=== PATIENT | male | born 1945 | race Caucasian/White ===

== ENCOUNTER 2020-12-12 13:11 | Outpatient (CLI) | payer OTHER, SELFPAY ==
--- NOTE | ~2020-12-12 | XR_ITS ---
EXAMINATION: XR abdomen/kub 1V INDICATION: Gross scalp and hematuria TECHNIQUE: Supine views of the abdomen were obtained on 2 radiographs. COMPARISON: CT from today FINDINGS: There is a 13 mm stone in the left mid kidney. Stones measuring 11 mm, 7 mm, and 6 mm are s een in the right kidney. No stones are identified along the expected courses of the ureter. There are multiple phleboliths of the pelvis. An 18 mm ill-defined calcification of the right pelvis is demons trated to be stones within a diverticulum of the bladder on the comparison CT. The bowel gas pattern is normal. There is mild osteoarthritis of the hips. Moderate lumbar spondylosis is noted. IMPRESSION: 1. Bilateral nephrolithiasis. 2. Stones seen within a bladder diverticulum, better appreciated on the comparison CT. Reviewed, dictated and finalized at location A. C D REACTOR OPERATOR IMPRESSION: 1. Bilateral nephrolithiasis. 2. Stones seen within a bladder diverticulum, better appreciated on the compari son CT.
--- NOTE | ~2020-12-12 | CT_ITS ---
EXAMINATION: CT abdomen pelvis wo/w con DATE: 12/12/2020 14:11 INDICATION: Microscopic hematuria. TECHNIQUE: Computed tomography (CT) of the abdomen and pelvis was performed without and with intraven ous contrast using a total of 130 mL Omnipaque-350 intravenous contrast with a double-bolus technique for simultaneous opacification of the renal parenchyma and renal collecting system. Automated exposu re control and iterative reconstruction technique were employed. The dose-length product was 3084.28 mGy-cm. COMPARISON: None FINDINGS: The visualized portions of the lung bases demonstrate mild atelectasis. There is mild elevation of le ft hemidiaphragm. No pleural effusion. The heart size is normal. No pericardial effusion. There are c oronary artery calcifications. Calcified left hilar lymph nodes are consistent with old granulomatous disease. There is a small sliding hiatal hernia. There is diffuse hepatic steatosis. The gallbladder is normal. Calcifications in the spleen are consistent with old granulomatous disease. The pancreas, and adrenal glands are normal. There is cortical thinning of the kidneys. There are 4 stones in righ t kidney measuring up to 7 mm. There is a 2.3 cm peripelvic cyst in right kidney. There is an 8 mm s tone in left kidney. The ureters are well opacified and are normal. There are diverticula of the gustavo dder. There are stones in the bladder measuring up to 15 mm with the largest stone in a diverticulum. There is diffuse bladder wall thickening, likely secondary to chronic outlet obstruction from the mo derately enlarged prostate. There is a left inguinal hernia containing fat. There is diverticulosis o f the colon without evidence of diverticulitis. There are no dilated loops of bowel. The appendix is normal. There are multiple ventral hernias containing fat. There is a ventral hernia containing a wal l of obstructive small bowel. There is a large distribution of fat stranding in the small bowel mesen marcy, likely edema or inflammation/scarring (mesenteric panniculitis). There are no pathologically en larged lymph nodes. There is no free intraperitoneal fluid. There is moderate thoracolumbar spondylos is. There is mild chronic anterior wedging of multiple thoracic vertebral bodies. IMPRESSION: 1. Bilateral nonobstructing kidney stones. 2. Bladder stones. 3. Diffuse bladder wall thickening and bladder diverticula, likely secondary to chronic outlet obstru ction from the moderately enlarged prostate. 4. Multiple ventral hernias. One contains a wall of nonobstructed small bowel. 5. Left inguinal hernia containing fat. Reviewed, dictated and finalized at location B. NING MACHINE OPERATOR IMPRESSION: 1. Bilateral nonobstructing kidney stones. 2. Bladder stones. 3. Diffuse bladder wall thickening and bladder diverticula, likely secondary to chronic outlet obstruction from the moderately enlarged prostate. 4. Multiple ventral hernias. One contains a wall of nonobstructed small bowel. 5. Left inguinal hernia containing fat.
[2020-12-12 13:50] LABS: Estimated Glomerular Filt Rate > 60
== END 2020-12-12 13:12 | disposition home or self-care (01) ==
LOC: ANHIMG 13:12
PROVIDERS: PCP Emergency Medicine; Visit Provider Urology
DX: R31.29 Other microscopic hematuria (principal); N20.0 Calculus of kidney; N21.0 Calculus in bladder; K43.9 Ventral hernia without obstruction or gangrene; K40.90 Unilateral inguinal hernia, without obstruction or gangrene, not specified as recurrent
CPT/HCPCS: 74018; 74178; Q9967

== ENCOUNTER 2021-06-14 20:27 | Observation (INO) | payer OTHER, SELFPAY ==
--- NOTE | ~2021-06-14 | XR_ITS ---
EXAMINATION: XR abdomen/kub 1V EXAM DATE: 06/14/2021 21:39 INDICATION: Kidney stone . TECHNIQUE: Frontal projection(s) of the abdomen for interpretation. Comparison is made to prior exami nation from 12/12/2020. FINDINGS: Left UPJ 1 m stone identified, indicated. Smaller right nephrolithiasis. Bladder jet stone . Calcifications in the pelvis are believed to be phleboliths. Expected amount of colonic stool and g as. No small bowel obstruction. There are bony degenerative changes. IMPRESSION: 1. Left UPJ stone. 2. Right nephrolithiasis. 3. Bladder stone. Reviewed, dictated and finalized at location A.
--- NOTE | ~2021-06-14 | CT_ITS ---
EXAMINATION: CT abdomen pelvis wo con EXAM DATE: 06/14/2021 21:29 INDICATION: Bilateral flank pain, penis and testicle pain. TECHNIQUE: Spiral CT of the abdomen and pelvis was performed without contrast. Axial, coronal and sag ittal images were reviewed. The dose-length product (DLP) for this examination was 966.55 mGy-cm. T he exposure was tailored according to patient size (auto mA exposure control), and iterative reconstr uction (ASIR) was used as additional dose reduction technique. Comparison is made to prior examinatio n from 12/12/2020. FINDINGS: There is a 1 cm left renal pelvic stone with mild left hydronephrosis. There are several ri ght kidney stones up to 6 mm in size. No right hydronephrosis. There is moderate prostatomegaly, the prostate is bulging into the bladder base. There is a right posterolateral bladder diverticulum cont aining bladder annette stone. Another smaller left lateral bladder diverticulum. Moderate-sized left, small to moderate right inguinal fat-containing hernias. Multiple fat-containing periumbilical ventral hernias. There is aster mesentery appearance, a nonspecific finding but most c ommonly caused by infiltration with inflammatory cells, chronic mesenteric panniculitis. No pathologi nichole enlarged lymph nodes to suggest lymphoma/malignancy, or thrombosed vessels to suggest edema. The liver, spleen, adrenal glands and pancreas are unremarkable. Gallbladder is unremarkable. No bi liary obstruction. There is no retroperitoneal or pelvic lymphadenopathy. The appendix is normal. There is mild to moderate sigmoid colonic diverticulosis. There is no adjace nt inflammatory change to suggest diverticulitis. The stomach and small bowel are unremarkable. Ther e is expected amount of colonic stool. No free intraperitoneal gas. The heart is normal in size. There are no pericardial or pleural effusions. The lung bases are unremarkable. There are no osteo blastic or osteolytic lesions identified. Compared to previous exam, the left UPJ stone was in a calyx on prior study and has moved to the UPJ. The aster mesentery and other findings unchanged. IMPRESSION: 1. Left UPJ 1 cm stone, mild hydronephrosis. 2. Right nephrolithiasis. 3. Bladder diverticula and stone. 4. Moderate prostatomegaly. 5. Moderate left, small to moderate right inguinal fat-containing hernias. 6. Mild to moderate sigmoid diverticulosis. 7. Chronic aster mesentery. Reviewed, dictated and finalized at location A.
--- NOTE | ~2021-06-14 | XR_ITS ---
EXAMINATION: XR retrograde pyelo w/stent LT EXAM DATE: 06/15/2021 13:50 INDICATION: Left UPJ stone, obstructive nephropathy. TECHNIQUE: Fluoroscopy used during XR retrograde pyelo w/stent LT performed by Dr. Suresh bazan MD, urologist. The radiologist Stefano Song M.D. dictating this report of the image(s) availabl e was not present for the procedure. Total fluoroscopic time of 27 seconds. The DAP for this proced ure was 616 radcm2. A total of 9 images sent to PACS from the exam. FINDINGS: Approximately 1 cm stone identified left UPJ. Left ureter was cannulated, injected. There i s mild left hydronephrosis. A double-J ureteral stent was placed. Correlate with procedure note. IMPRESSION: Left UPJ stone. Stent in position. Reviewed, dictated and finalized at location A.
[2021-06-14 20:42] VITALS: BP 158/78; PULSE 79; RESP 16; TEMP 36.9; O2SAT 98
[2021-06-14 21:05] LABS: Basophils Percent Auto 0.1 % (0.2-1.2); Eosinophils Percent Auto 0.4 % (0-4.4); Hematocrit 40.5 % (42.0-52.0); Hemoglobin 13.8 g/dL (14.0-18.0); Immature Granulocyte Absolute 0.02 K/mm3 (0.00-0.031); Immature Granulocyte Percent A 0.2 % (0-0.5); Lymphocytes Absolute Auto 1.62 K/mm3 (0.9-3.2); Lymphocytes Percent Auto 17.9 % (18.3-44.2); Mean Corpuscular HGB Conc 34.1 g/dl (32-36); Mean Corpuscular Hemoglobin 28.6 pg (26-34); Mean Corpuscular Volume 83.9 fl (80-100); Mean Platelet Volume 10.3 fl (7.4-10.4); Monocytes Absolute Auto 0.7 K/mm3 (0.1-0.6); Monocytes Percent Auto 7.6 % (2.6-8.5); Neutrophils Absolute Auto 6.7 K/mm3 (1.3-6.7); Neutrophils Percent Auto 73.8 % (45.5-73.1); Platelet Count Result 194 k/mm3 (150-375); Red Blood Count 4.83 M/mm3 (4.6-6.20); Red Cell Distribution Width 13.1 % (11.5-14.5); White Blood Count 9.1 K/mm3 (4.5-10.0)
[2021-06-14 21:11] LABS: Add Urine Microscopic? YES; Appearance Urine Clear (Clear); Bacteria Urine Trace /hpf; Bilirubin Urine Negative (Negative); Blood Urine 2+ (Negative); Color Urine Yellow (Yellow); Glucose Urine UA Negative (Negative); Ketones Urine Negative (Negative); Leukocyte Esterase Ur 2+ LEU/UL (Negative); Mucus Urine Rare /lpf; Nitrate Urine Positive (Negative); Protein Urine Negative (Negative); Specific Grav Ur 1.012 (1.001-1.035); Urobilinogen Urine Negative mg/dL (<2.0); WBC Urine 31-50 /hpf
[2021-06-14 21:17] LABS: Anion Gap 13 mmol/L (8-16); Blood Urea Nitrogen 15 mg/dL (9-20); Calcium 9.5 mg/dL (8.4-10.2); Carbon Dioxide 22 mmol/L (22-30); Chloride 103 mmol/L (98-107); Estimated Glomerular Filt Rate 46; Glucose 119 mg/dL (65-110); Potassium 3.6 mmol/L (3.4-5.0); Sodium 138 mmol/L (137-145)
--- NOTE | 2021-06-14 22:18 | ED.GENADULT ---
HPI - General Adult General Chief complaint: Urogenital-Male Stated complaint: flank, groin, and testicular pain Time Seen by Provider: 06/14/21 20:49 Source: RN notes reviewed History of Present Illness HPI narrative: Patient presents to emergency department from home for several complaints. Patient notes that he has had pain in his left flank for the past 2 days radiates around his left abdomen and down into his left testicle states the pain is described as aching in nature. Patient states he does have a history of kidney stones as well as bladder stones and is followed by Dr. Diggs. Patient also notes some pain with urination. Patient also is concerned as 2 days ago he placed a rubber band around his penis and had forgotten was there and fell asleep and was on for approximately 7 2 8 hours. He is concerned as he feels that he has some mild swelling of his penis. Related Data Allergies Allergy/AdvReac Type Severity Reaction Status Date / Time Penicillins Allergy Unknown Unknown Verified 06/14/21 21:05 Review of Systems Review of Systems: Narrative: Gen.: Denies fevers or chills ENT: Denies congestion Respiratory: Denies shortness of breath or cough CV: Denies chest pain or palpitations GI: Denies abdominal pain nausea, emesis or diarrhea see HPI Musculoskeletal: Denies back pain or muscle pain Neuro: Denies numbness, tingling, weakness or focal weakness Skin: Denies rash Except as documented, all other systems reviewed and negative [facility] Past Medical History Medical History (Updated 06/14/21 @ 22:21 by David Quevedo DO) Screening for abdominal aortic aneurysm Screening PSA (prostate specific antigen) Skin lesions Vitamin D deficiency disease Social History Social History Smoking status: Never smoker Alcohol intake: never Exam Narrative: Exam Narrative: APPEARANCE: No acute distress, nontoxic, resting in bed EYES: EOMI HEENT: Normocephalic, atraumatic, OMM RESPIRATORY: No respiratory distress Clear to auscultation bilaterally with no rhonchi wheezing or rales. CARDIOVASCULAR: Regular rate and rhythm without murmurs rubs or gallops. ABDOMINAL: Soft, nontender, nondistended, no rebound or guarding left flank tenderness : Circumcised male, no phimosis or paraphimosis, normal coloration of the meatus with capillary refill less than 3 seconds no scrotal swelling or erythema no testicular tenderness MUSCULOSKELETAl: Moves all extremities. No clubbing, cyanosis or edema. NEURO: Awake and alert. Following commands, speech normal, no focal deficits SKIN:: Warm, dry. No rashes lesions or abrasions PSYCHIATRIC: Normal affect/mood, Course Course Emergency Course: Discussed with Dr. Alaniz presentation work-up agrees with plan for patient go to the OR for stent placement in a.m. Request patient started Levaquin Discussed with Dr. Colby presentation work-up agrees with admission at this time Discussed with patient and family results of workup and diagnosis. Discussed need for admission. Patient and family understand and agree to current treatment plan Vital Signs Vital signs: Vital Signs Temperature 98.5 F 06/14/21 20:42 Pulse Rate 79 06/14/21 20:42 Respiratory Rate 16 06/14/21 20:42 Blood Pressure 158/78 H 06/14/21 20:42 Pulse Oximetry 98 06/14/21 20:42 Temperature 98.5 F 06/14/21 20:42 Pulse Rate 79 06/14/21 20:42 Respiratory Rate 16 06/14/21 20:42 Blood Pressure 158/78 H 06/14/21 20:42 Pulse Oximetry 98 06/14/21 20:42 Medical Decision Making Vital Signs Vital Signs: Vital Signs Temperature 98.5 F 06/14/21 20:42 Pulse Rate 79 06/14/21 20:42 Respiratory Rate 16 06/14/21 20:42 Blood Pressure 158/78 H 06/14/21 20:42 Pulse Oximetry 98 06/14/21 20:42 Temperature 98.5 F 06/14/21 20:42 Pulse Rate 79 06/14/21 20:42 Respiratory Rate 16 06/14/21 20:42 Blood Pressure 158/78 H
[2021-06-14 22:28] VITALS: BP 154/79; PULSE 78; RESP 18; O2SAT 99
--- NOTE | 2021-06-14 22:41 | PC.NURSE ---
Patient's daughter,Kelsy Ingram: Cell phone number: [phone] The number listed as her cellphone in the chart is actually her work phone number.
[2021-06-14 23:37] VITALS: BP 152/89; PULSE 63; RESP 18; O2SAT 98
[2021-06-15] VITALS (9 sets, daily range): BP systolic 124–155; BP diastolic 64–83; PULSE 54–64; RESP 14–20; TEMP 35.8–36.8; O2SAT 95–99; BMI 34.2
--- NOTE | 2021-06-15 00:46 | ADMGEN ---
This patient, Sea Godinez, was admitted to [facility] Surg Room 317-02. Patient/family oriented to hospital policies and general routines including ID bracelet, bed and alarms, visiting hours, pain management, procedures, bathroom and other care routines, personal items, smoking policy, room service/diet, and visiting hours. Information on how to activate the Rapid Response Team has been discussed. Patient/Family are encouraged to report perceived risks to care and to ask questions if they do not understand what they are told or what they should do.
[2021-06-15] MEDS: SODIUM CHLORIDE 0.9% IV 1,000 ML 125 ML IV CONT (02:33)
--- NOTE | 2021-06-15 06:21 | WPDURCON ---
Assessment and Plan Assessment and plan (1) Acute UTI: Code(s): N39.0 - Urinary tract infection, site not specified Status: Acute Assessment and Plan: - continue empiric treatment With Levaquin. - await final urine culture (2) Kidney stone on left side: Code(s): N20.0 - Calculus of kidney Status: Acute Assessment and Plan: Obstructing 1cm left UPJ stone. Given the presence of urinary tract infection and obstructing stone I discussed plan for cystoscopy and left ureteral stent insertion today. Patient understands the risks benefits and alternatives. They understand that he will need deferred definitive stone management. Agrees to proceed with cystoscopy, possible bladder stone evacuation, left retrograde pyelogram, left ureteral stent insertion (3) Acute renal insufficiency: Code(s): N28.9 - Disorder of kidney and ureter, unspecified Status: Acute (4) Bladder stone: Code(s): N21.0 - Calculus in bladder Status: Acute Assessment and Plan: patient with multiple stones present in a bladder diverticulum. Small stones may be evacuated at the time of cystoscopy, or may require additional intervention at a later date. Urology Consult Note HPI Date Seen: 06/15/21 Requesting Physician: Corie Colby DO Primary Care Provider: Nakul Barrera, DO Consult Narrative Narrative: Sea Godinez is a 75 year old male who presented to the emergency department last night for 2 issues. The patient notes that he has had pain in his left flank for the past 2 days radiates around his left abdomen. Patient states he does have a history of kidney stones as well as bladder stones. Patient also notes some pain with urination. he denies fevers or chills. He denies nausea or vomiting. Patient states his pain is improved this morning Patient also is concerned as 2 days ago he placed a rubber band around his penis and had forgotten was there and fell asleep and was on for approximately 7 - 8 hours. the patient subsequently the band. He is now voiding well. He has no significant pain. Review of Systems Review of Systems: All systems reviewed & are unremarkable except as noted in HPI and below PMFSH Past Medical History Medical History (Updated 06/15/21 @ 06:25 by Imani Montes MD) Bladder stone Screening for abdominal aortic aneurysm Screening PSA (prostate specific antigen) Skin lesions Vitamin D deficiency disease Social History Social History Smoking status: Never smoker Second hand tobacco smoke exposure: No Alcohol intake: never Substance use: never Spiritual care concerns: No Meds Home Medications and Allergies Home Medications Medication Instructions Recorded Confirmed Type tamsulosin See Rx Instructions .ROUTE .COMPLEX 06/15/21 06/15/21 History Allergies Allergy/AdvReac Type Severity Reaction Status Date / Time Penicillins Allergy Unknown Unknown Verified 06/14/21 21:05 Vital Signs Vital Signs - 24 hr 06/14/21 20:42 06/14/21 22:28 06/14/21 23:37 Temperature 36.9 C Pulse Rate 79 78 63 Respiratory Rate 16 18 18 Blood Pressure 158/78 H 154/79 H 152/89 H Pulse Oximetry 98 99 98 06/15/21 00:58 Temperature 36.6 C Pulse Rate 61 Respiratory Rate 20 Blood Pressure 147/64 H Pulse Oximetry 99 Exam Narrative: Exam Narrative: The patient is awake alert in no acute distress. His breathing is unlabored. His abdomen soft nontender nondistended. Patient has a normal phallus and bilateral descended testicles. There is no significant erythema, ecchymosis, or injury to the phallus. Results Labs CBC & Chem 7: 06/14/21 20:53 06/14/21 20:53 Labs: Short CBC 06/14/21 Range/Units 20:53 WBC 9.1 (4.5-10.0) K/mm3 Hgb 13.8 L (14.0-18.0) g/dL Hct 40.5 L (42.0-52.0) % Plt Count 194 (150-375) k/mm3 B
[2021-06-15 06:51] LABS: Basophils Percent Auto 0.3 % (0.2-1.2); Eosinophils Absolute Auto 0.1 K/mm3 (0-0.3); Eosinophils Percent Auto 1.4 % (0-4.4); Hematocrit 41.9 % (42.0-52.0); Hemoglobin 13.7 g/dL (14.0-18.0); Immature Granulocyte Absolute 0.03 K/mm3 (0.00-0.031); Immature Granulocyte Percent A 0.4 % (0-0.5); Lymphocytes Absolute Auto 1.37 K/mm3 (0.9-3.2); Lymphocytes Percent Auto 19.7 % (18.3-44.2); Mean Corpuscular HGB Conc 32.7 g/dl (32-36); Mean Corpuscular Hemoglobin 28.3 pg (26-34); Mean Corpuscular Volume 86.6 fl (80-100); Mean Platelet Volume 10.6 fl (7.4-10.4); Monocytes Absolute Auto 0.6 K/mm3 (0.1-0.6); Monocytes Percent Auto 8.5 % (2.6-8.5); Neutrophils Absolute Auto 4.9 K/mm3 (1.3-6.7); Neutrophils Percent Auto 69.7 % (45.5-73.1); Platelet Count Result 181 k/mm3 (150-375); Red Blood Count 4.84 M/mm3 (4.6-6.20); Red Cell Distribution Width 13.2 % (11.5-14.5)
[2021-06-15 07:02] LABS: Anion Gap 11 mmol/L (8-16); Blood Urea Nitrogen 16 mg/dL (9-20); Calcium 8.7 mg/dL (8.4-10.2); Carbon Dioxide 21 mmol/L (22-30); Chloride 107 mmol/L (98-107); Estimated CRCL calculation 47 ml/min; Estimated Glomerular Filt Rate 42; Glucose 106 mg/dL (65-110); Sodium 139 mmol/L (137-145)
--- NOTE | 2021-06-15 08:19 | PM.SD2 ---
Same Day Admit/Disch: HPI History of Present Illness Chief complaint: Left kidney stone, UTI, renal insufficiency Narrative: Sea Godinez is a 75 year old male With a past medical history of BPH, hernia, GERD who presented to the ED for left-sided flank pain that radiated to the abdomen down into the groin. Patient said it all started about 2 days ago on Friday. Patient stated that he has been little nauseated however it does not have any vomiting. He does admit to a little abnormal swelling in his testes in his penis. However patient also placed around around his penis and scrotum and for got that was there when he fell asleep for approximately 1 hour. However that has resolved and the patient does not have any pain in that area. Patient also stated that he has a little bit of swelling in his legs in the right leg greater than left however he said that is pretty normal for him. He also stated that he has had kidney stones in the past and they put him on antibiotics for UTI then as well. Patient has been seen by urology Dr. Montes who is taking him down for stent today at 1:00 p.m. according to the patient. Currently patient has no chest pain, shortness of breath, nausea, vomiting, diarrhea, constipation, numbness and tingling, sweats, fevers, chills, lightheadedness, dizziness, syncope, falls, urinary dysfunction, weakness or fatigue. Patient also denies hematuria, cloudy urine, or any type of odor. [facility] Past Medical History Medical History Bladder stone Screening for abdominal aortic aneurysm Screening PSA (prostate specific antigen) Skin lesions Vitamin D deficiency disease Social History Social History Social History: Patient lives at home with his Malena that he has been to for 56 years with no pets. 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 Gender identity (if verbalized by the patient): Male Sexual Orientation (if Verbalized by the Patient): Straight or Heterosexual Spiritual care concerns: No Agree to blood products: Yes Same Day Admit/Disch: Med Pre-admit Medications Home Medications Medication Instructions Recorded Confirmed Type finasteride 5 mg PO DAILY 06/15/21 06/15/21 History levofloxacin 750 mg PO DAILY #7 tablet 06/15/21 Rx tamsulosin See Rx Instructions .ROUTE .COMPLEX 06/15/21 06/15/21 History Exam Const: General: cooperative, healthy appearing, comfortable, no acute distress, well developed, alert, awake, Physically active and well groomed Nutritional Appearance: average body habitus, well nourished, obese and overweight Orientation/consciousness: oriented to person, oriented to place, oriented to time and patient oriented x3 Limitations: no limitations HENMT: Head: normal to inspection Ears: external ears normal and other (Hard of hearing) General nose exam: Normal external nose present, Normal nares present and Normal nasal mucous membranes and turbinates present Face and sinus: normal facial exam Mouth: Yes Normal oral and palatal mucosa present, Yes lip normal, Yes tongue normal and Yes moist mucous membranes Teeth and gingiva: abnormal tooth and associated gingiva and poor dentition Eyes: General: appearance normal, both eyes and all related structures Neck: Neck: normal visual inspection, full ROM, trachea midline and supple Chest: Chest palpation & inspection: normal inspection of the chest Resp: Effort & Inspection: normal respiratory effort and able to speak in complete sentences Auscul
--- NOTE | 2021-06-15 11:24 | WPDHPUPDATE1 ---
History and Physical Update Update Date/Time: 06/15/21 11:24 History and Physical has been reviewed, including an updated exam of the patient. There are NO changes in the patient's condition. Risks, benefits, and alternatives have been discussed and questions answered. Patient agrees to proceed with procedure. Proceed with cystoscopy, left retrograde pyelogram, left ureteral stent placement
--- NOTE | 2021-06-15 11:39 | WPDANESEPPF ---
Anes - Initial Pre Proc Eval Procedure: Operation Date: 06/15/21 13:00 Proposed Procedures p Cystoscopy, Left Stent Placement(Left) - Suresh Diggs MD Date/Time: 06/15/21 11:39 Surgeon: Corie Colby DO Pre Op Diagnosis: Left kidney stone, UTI, renal insufficiency Patient Data Age: 75 Gender: M Height: 1.83 m Weight: 114.5 kg Last Vital Signs Temp 36.8 C 06/15/21 06:00 Pulse 64 06/15/21 06:00 Resp 20 06/15/21 06:00 BP 148/73 H 06/15/21 06:00 Pulse Ox 97 06/15/21 06:00 Allergies Allergy/AdvReac Type Severity Reaction Status Date / Time Penicillins Allergy Unknown Unknown Verified 06/14/21 21:05 Home Medications Medication Instructions Recorded Confirmed Type finasteride 5 mg PO DAILY 06/15/21 06/15/21 History tamsulosin See Rx Instructions .ROUTE .COMPLEX 06/15/21 06/15/21 History Laboratory Tests 06/14/21 06/14/21 06/14/21 20:53 20:53 20:53 WBC 9.1 K/mm3 K/mm3 (4.5-10.0) RBC 4.83 M/mm3 M/mm3 (4.6-6.20) Hgb 13.8 g/dL L g/dL (14.0-18.0) Hct 40.5 % L % (42.0-52.0) MCV 83.9 fl fl (80-100) MCH 28.6 pg pg (26-34) MCHC 34.1 g/dl g/dl (32-36) RDW 13.1 % % (11.5-14.5) Plt Count 194 k/mm3 k/mm3 (150-375) MPV 10.3 fl fl (7.4-10.4) Immature Gran % (Auto) 0.2 % % (0-0.5) Neut % (Auto) 73.8 % H % (45.5-73.1) Lymph % (Auto) 17.9 % L % (18.3-44.2) Douglas % (Auto) 7.6 % % (2.6-8.5) Eos % (Auto) 0.4 % % (0-4.4) Baso % (Auto) 0.1 % L % (0.2-1.2) Lymph # (Auto) 1.62 K/mm3 K/mm3 (0.9-3.2) Douglas # (Auto) 0.7 K/mm3 H K/mm3 (0.1-0.6) Eos # (Auto) 0.0 K/mm3 K/mm3 (0-0.3) Baso # (Auto) 0.0 K/mm3 K/mm3 (0.0-0.1) Abs Immat Gran (auto) 0.02 K/mm3 K/mm3 (0.00-0.031) Absolute Neuts (auto) 6.7 K/mm3 K/mm3 (1.3-6.7) Absolute Nucleated RBC 0.0 K/mm3 K/mm3 (0.0-0.012) Nucleated RBC % 0.0 % % (0.0-0.2) Sodium 138 mmol/L mmol/L (137-145) Potassium 3.6 mmol/L mmol/L (3.4-5.0) Chloride 103 mmol/L mmol/L (98-107) Carbon Dioxide 22 mmol/L mmol/L (22-30) Anion Gap 13 mmol/L mmol/L (8-16) BUN 15 mg/dL mg/dL (9-20) Creatinine 1.50 mg/dL H mg/dL (0.7-1.3) Estim Creat Clear Calc Not Reportable Estimated GFR 46 L (59 - ) Glucose 119 mg/dL H mg/dL (65-110) Calcium 9.5 mg/dL mg/dL (8.4-10.2) Urine Color Yellow (Yellow) Urine Appearance Clear (Clear) Urine pH 6.0 (5.0-9.0) Ur Specific Barre 1.012 (1.001-1.035) Urine Protein Negative mg/dL mg/dL (Negative) Urine Glucose (UA) Negative mg/dL mg/dL (Negative) Urine Ketones Negative mg/dL mg/dL (Negative) Ur Blood (Man) 2+ H (Negative) Urine Nitrate Positive H (Negative) Urine Bilirubin Negative (Negative) Urine Urobilinogen Negative mg/dL mg/dL (<2.0) Leukocyte Esterase Rfl 2+ JP/UL H JP/UL (Negative) Urine RBC 3-5 /hpf H /hpf (0-2) Urine WBC 31-50 /hpf H /hpf Urine Bacteria Trace /hpf /hpf Urine Mucus Rare /lpf /lpf 06/15/21 06/15/21 06:27 06:27 WBC 7.0 K/mm3 K/mm3 (4.5-10.0) RBC 4.84 M/mm3 M/mm3 (4.6-6.20) Hgb 13.7 g/dL L g/dL (14.0-18.0) Hct 41.9 % L % (42.0-52.0) MCV 86.6 fl fl (80-100) MCH 28.3 pg pg (26-34) MCHC 32.7 g/dl g/dl (32-36) RDW 13.2 % % (11.5-14.5) Plt Count 181 k/mm3 k/mm3 (150-375) MPV 10.6 fl H fl (7.4-10.4) Immature Gran % (Auto) 0.4 % % (0-0.5) Neut % (Auto) 69.7 % % (45.5-73.1) Lymph % (Auto) 19.7 % % (18.3-44.2) Mon
--- NOTE | 2021-06-15 11:42 | PC.NURSE ---
06/15/21 1130 Patient transported to OR per bed. IV SL.
[2021-06-15] MEDS: LACTATED RINGERS 1,000 ML 30 ML IV CONT (12:00)
--- NOTE | 2021-06-15 13:42 | P.OP_ITS ---
Procedure Note - Detailed Date of Procedure 06/15/21 Pre-op Diagnosis Left kidney stone, UTI, renal insufficiency Post-op Diagnosis same Procedure Performed Cystoscopy, left retrograde pyelogram, left stent placement. 4.8 [place] contour Surgeon Suresh Diggs MD Anesthesia general Description of Procedure patient is taken the operative suite correctly identified. Once anesthesia was obtained he was placed in dorsal lithotomy position in sterile fashion. Twenty- two [place] scope inserted the bladder in direct vision. As the enlarged obstructing prostate with a large median lobe. He also was noted to have a diverticulum with some Lee stones in it. The left ureteral orifice was visualized and cannulated with a [place]. Pyelogram was performed. Angled Glidewire was used manipulated up into the kidney. We thus placed a 4.8 [place] contour stent with the proximal end coiled in the renal pelvis and the distal in the bladder. Bladder was drained. 2% viscous lidocaine was inserted urethra patient was taken recovery stable condition. Patient can be discharged home later today if stable. Head plan on seeing in the office next week for repeat urine culture in scheduling him for a lithotripsy. He will also require a KUB prior to his visit. Urine Output 175 Drains Yes Packing No Pathology none sent Complications No immediate complications Condition stable Disposition PACU
--- NOTE | 2021-06-15 15:18 | PC.NURSE ---
Pt return from OR per bed 1510 06/15/21.
--- NOTE | 2021-06-18 09:46 | PC.NURSE ---
Called patient regarding taking levofloxacin. Explained took this while hospitalized and to continue for 7 days. Patient states he spoke with Urology, Tosh[facility]? and was told he does not have a UTI and it is safe to stop taking this medication.
== END 2021-06-15 16:25 | disposition home or self-care (01) ==
LOC: ANHED 22:21 → ANH3MEDSUR 06-15 07:00
PROVIDERS: Emergency Medicine; Urology; Admitting Provider Internal Medicine; Emergency Provider Emergency Medicine; PCP Student in an Organized Health Care Education/Training Program; Visit Provider Internal Medicine
PROC: (CPT 52352; principal; 2021-06-15 13:00)
DX: N39.0 Urinary tract infection, site not specified (principal); N20.0 Calculus of kidney; N21.0 Calculus in bladder; N40.1 Benign prostatic hyperplasia with lower urinary tract symptoms; N17.9 Acute kidney failure, unspecified; R35.0 Frequency of micturition; K21.9 Gastro-esophageal reflux disease without esophagitis; Z87.891 Personal history of nicotine dependence
CPT/HCPCS: 52332; 36415; 74018; 74176; 74420; 80048; 81001; 85025; 87086; 96361; 96365; 99285; C1758; C1769; C2617; G0378; J1956; J2250; J2704; J3010; J7030; J7120; Q9966

== ENCOUNTER → 2021-06-20 15:43 | Outpatient (CLI) | payer OTHER, SELFPAY ==
--- NOTE | ~2021-06-20 | XR_ITS ---
EXAMINATION: XR abdomen/kub 1V INDICATION: Calculus of the kidney TECHNIQUE: Supine views of the abdomen were obtained on 2 radiographs. COMPARISON: 06/14/2021 FINDINGS: A left internal ureteral stent is in expected position. There is an 11 mm stone adjacent to the proximal aspect of the stent. Again seen is an amorphous calcification in the right pelvis demon strated be within a bladder diverticulum on the comparison CT. There are multiple stones of the right kidney which measure up to 9 mm. The visualized lung bases are clear. There are phleboliths of the p richie. IMPRESSION: 1. Left internal ureteral stent in expected position with unchanged stone adjacent to the proximal as pect of the stent. 2. Right nephrolithiasis. 3. Stones noted within a diverticulum of the urinary bladder. Reviewed, dictated and finalized at location A. IMPRESSION: 1. Left internal ureteral stent in expected position with unchanged stone adjac ent to the proximal aspect of the stent. 2. Right nephrolithiasis. 3. Stones noted within a diverticulum of the urinary bladder.
== END ==
PROVIDERS: PCP Student in an Organized Health Care Education/Training Program; Visit Provider Nurse Practitioner
DX: N20.0 Calculus of kidney (principal)
CPT/HCPCS: 74018

== ENCOUNTER 2021-06-25 13:58 | Outpatient (CLI) | payer OTHER, SELFPAY ==
[2021-06-25 14:33] LABS: Prothrombin Time 13.3 Seconds (11.1-14.7)
[2021-06-25 14:34] LABS: Partial Thromboplastin Time 25.8 SECONDS (22.3-36.8)
[2021-06-25 14:56] LABS: Anion Gap 8 mmol/L (8-16); Blood Urea Nitrogen 14 mg/dL (9-20); Calcium 8.9 mg/dL (8.4-10.2); Carbon Dioxide 25 mmol/L (22-30); Chloride 110 mmol/L (98-107); Estimated Glomerular Filt Rate > 60; Glucose 101 mg/dL (65-110); Potassium 3.9 mmol/L (3.4-5.0); Sodium 143 mmol/L (137-145)
== END 2021-06-25 13:59 | disposition home or self-care (01) ==
PROVIDERS: Anesthesiology; PCP Student in an Organized Health Care Education/Training Program; Visit Provider Urology
DX: N20.1 Calculus of ureter (principal); N28.9 Disorder of kidney and ureter, unspecified; Z01.818 Encounter for other preprocedural examination
CPT/HCPCS: 36415; 80048; 85610; 85730

== ENCOUNTER 2021-06-29 03:30 | Day surgery (SDC) | payer OTHER, SELFPAY ==
[2021-06-22 13:22] VITALS: BMI 33.7
--- NOTE | ~2021-06-29 | XR_ITS ---
EXAMINATION: XR abdomen/kub 1V INDICATION: Calculus of the kidney TECHNIQUE: Supine views of the abdomen were obtained on 2 radiographs. COMPARISON: 06/20/2021 FINDINGS: The left internal ureteral stent is in expected position. There is a 1.4 cm stone adjacent to the proximal aspect of the stent. Stones measuring 11 mm, 9 mm, and 6 mm are present in the right kidney. There is amorphous calcification of the right pelvis, previously demonstrated to be within a bladder diverticulum. Pelvic phleboliths are noted. The bowel gas pattern is normal. 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 IMPRESSION: 1. Unchanged stones adjacent to the proximal aspect of the left internal ureteral stent. 2. Right nephrolithiasis. 3. Stones in a diverticulum of the urinary bladder. Reviewed, dictated and finalized at location A. IMPRESSION: 1. Unchanged stones adjacent to the proximal aspect of the left internal ureter al stent. 2. Right nephrolithiasis. 3. Stones in a diverticulum of the urinary bladder.
[2021-06-29 09:00] VITALS: BP 144/63; PULSE 64; RESP 18; TEMP 36.8; O2SAT 97
[2021-06-29] MEDS: LACTATED RINGERS 1,000 ML 30 ML IV CONT (09:00)
--- NOTE | 2021-06-29 09:13 | P.PNAN_ITS ---
Anes - Initial Pre Proc Eval Procedure: Operation Date: 06/29/21 10:00 Proposed Procedures p Left Ureteral Extracorporeal Shock Wave Lithotripsy - Suresh Diggs MD Date/Time: 06/29/21 09:13 Surgeon: Suresh Diggs MD Pre Op Diagnosis: Left UPJ Ureteral Stone Patient Data Age: 75 Gender: M Height: 1.83 m Weight: 113 kg Allergies Allergy/AdvReac Type Severity Reaction Status Date / Time Penicillins Allergy Unknown Rash Verified 06/22/21 13:20 Home Medications Medication Instructions Recorded Confirmed Type finasteride 5 mg PO DAILY 06/15/21 06/22/21 History tamsulosin 0.4 mg PO HS 06/15/21 06/22/21 History Patient hx anesthesia problems: none Family hx anesthesia problems: none [facility] Past Medical History Medical History Bladder stone Screening for abdominal aortic aneurysm Screening PSA (prostate specific antigen) Skin lesions Vitamin D deficiency disease Social History Social History Social History: Patient lives at home with his Malena that he has been to for 56 years with no pets. 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 Gender identity (if verbalized by the patient): Male Spiritual care concerns: No Agree to blood products: Yes Anes - Eval Final PreProcedure Day of Procedure 06/29/21 09:13 Patient weight: obese Heart: regular rate and rhythm Lungs: clear to auscultation Airway: Mallampati scale class II Neurological: alert and oriented Last oral intake: >/= 8 hours ASA classification: II Emergent: no Anesthetic plan: proceed Anesthesia type and monitoring: general LMA and standard monitoring Informed Consent: The patient's anesthetic plan and its attendant risks and benefits were discussed with the patient/family/POA. Questions were solicited and answers provided to the satisfaction of the patient/family/POA.
--- NOTE | 2021-06-29 10:33 | WPDHPUPDATE1 ---
History and Physical Update Update Date/Time: 06/29/21 10:33 History and Physical has been reviewed, including an updated exam of the patient. There are NO changes in the patient's condition. Risks, benefits, and alternatives have been discussed and questions answered. Patient agrees to proceed with procedure. Proceed with left renal eswl
[2021-06-29] MEDS: ceFAZolin 2 GM/D5W 50 ML 2 GM/50 ML BAG IVPB (11:01)
--- NOTE | 2021-06-29 11:33 | W.PM.PROC2 ---
Procedure Note - Detailed Date of Procedure 06/29/21 Pre-op Diagnosis Left UPJ Ureteral Stone Post-op Diagnosis same Procedure Performed Lithotripsy of left UPJ calculus Surgeon Suresh Diggs MD Description of Procedure patient is taken the operative suite and correctly identified. Once anesthesia was obtained stone was localized in both planes in the left UPJ area. Stone appears to have been coiled in the proximal end of the stent. Two thousand five hundred shocks were given the stone. Patient tolerated procedure well without any complications taken recovery room stable condition. He will follow up in about 10 days with a KUB. Drains Yes Packing No Pathology none sent Complications No immediate complications Condition stable Disposition PACU
[2021-06-29 11:45] VITALS: BP 117/76; PULSE 60; RESP 12; TEMP 36.2; O2SAT 98
[2021-06-29 12:00] VITALS: BP 113/76; PULSE 57; RESP 14; O2SAT 98
[2021-06-29 12:15] VITALS: BP 126/77; PULSE 57; RESP 16; O2SAT 98
[2021-06-29 12:25] VITALS: BP 124/74; BP 91/58; PULSE 56; PULSE 60; RESP 16; O2SAT 98
[2021-06-29 12:45] VITALS: BP 127/76; PULSE 54; RESP 14
== END 2021-06-29 13:35 | disposition home or self-care (01) ==
PROVIDERS: PCP Student in an Organized Health Care Education/Training Program; Visit Provider Urology
PROC: (CPT 50590; principal; 2021-06-29 10:00)
DX: N20.1 Calculus of ureter (principal); Z87.891 Personal history of nicotine dependence; E66.9 Obesity, unspecified; Z68.33 Body mass index [BMI] 33.0-33.9, adult
CPT/HCPCS: 50590; 36415; 74018; 80048; 85610; 85730; J0690; J1100; J2370; J2405; J2704; J3010; J7120

== ENCOUNTER → 2021-06-30 00:57 | Outpatient (CLI) | payer OTHER, SELFPAY ==
[2021-06-30 21:53] LABS: SARS-CoV-2 RNA PCR Negative
== END ==
PROVIDERS: PCP Student in an Organized Health Care Education/Training Program; Visit Provider Student in an Organized Health Care Education/Training Program
DX: R68.89 Other general symptoms and signs (principal); Z20.822 Contact with and (suspected) exposure to COVID-19
CPT/HCPCS: C9803; U0003; U0005

== ENCOUNTER 2021-07-03 20:59 | Emergency (ER) | payer OTHER, SELFPAY ==
--- NOTE | ~2021-07-03 | XR_ITS ---
EXAMINATION: XR abdomen/kub 1V DATE: 07/03/2021 22:54 INDICATION: Evaluate recently placed left internal ureteral stent. TECHNIQUE: A supine view of the abdomen on 2 radiographs was obtained. COMPARISON: KUB dated 06/29/[address] dated 06/14/2021 FINDINGS: Left internal ureteral stent with proximal loop projecting right sacral ala expected location of the left renal pelvis. The stent follows identical course of the left ureter as seen on prior fluoroscopy and CT with no definitive stone fragments seen along the course of the stent. The distal loop of the stent likely within the bladder projects more cephalad and lateral suggesting distention of the blad mya. Cluster of calcifications likely remaining within the previously seen bladder diverticulum proje cts over the right sacral ala. Unchanged pattern of phleboliths in the pelvis. 6 mm and 7 mm stones p roject over the upper pole of the right kidney. Stones previously seen at the lower pole of the right kidney are unable to be definitively distinguished from mottled stool and gas in the superimposed co kira. No stones evident along the expected course of the right ureter. Visualized portion of the lung bases are clear. IMPRESSION: 1. Left internal ureteral stent remains in expected position with positioning of the distal loops sug gesting distention of the bladder. 2. Right nephrolithiasis and cluster of bladder stones within a right-sided bladder diverticulum. Reviewed, dictated and finalized at location A. IMPRESSION: 1. Left internal ureteral stent remains in expected position with positioning o f the distal loops suggesting distention of the bladder. 2. Right nephrolithiasis and cluster of bladder stones within a right-sided gustavo dder diverticulum.
[2021-07-03 21:01] VITALS: BP 155/72; PULSE 85; RESP 18; TEMP 36.3; O2SAT 96
--- NOTE | 2021-07-03 23:09 | ED.GENADULT ---
HPI - General Adult General Chief complaint: Urogenital-Male Stated complaint: pain above penis, hx kidney stones Time Seen by Provider: 07/03/21 22:22 Source: patient and RN notes reviewed Mode of arrival: ambulatory Limitations: no limitations History of Present Illness HPI narrative: This is 75 year old male with history of BPH and kidney stones s/p lithotripsy who presents for evaluation of urinary retention. Patient states he had lithotripsy performed on Friday. He was doing well until until Friday. He reports he started having increased urinary yesterday. He states he was urinating every 10 minutes so he called his urologist. He was started on oxybutynin which helped his urinary frequency. Today he developed inability to urinate. He states he has not urinated in 5 hours and he is having severe lower abdominal pressure. He denies hematuria, nausea, vomiting or fever. He denies abdominal pain. Related Data Home Medications Medication Instructions Recorded Confirmed finasteride 5 mg PO DAILY 06/15/21 06/29/21 tamsulosin 0.4 mg PO HS 06/15/21 06/29/21 Allergies Allergy/AdvReac Type Severity Reaction Status Date / Time Penicillins Allergy Unknown Rash Verified 06/29/21 09:35 Review of Systems Review of Systems: All systems reviewed & are unremarkable except as noted in HPI and below PMFSH Past Medical History Medical History Bladder stone Screening for abdominal aortic aneurysm Screening PSA (prostate specific antigen) Skin lesions Vitamin D deficiency disease Social History Social History Social History: Patient lives at home with his Malena that he has been to for 56 years with no pets. 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 Gender identity (if verbalized by the patient): Male Spiritual care concerns: No Agree to blood products: Yes Exam Const: General: alert Orientation/consciousness: patient oriented x3 Resp: Effort & Inspection: normal respiratory effort and no retractions Auscultation: clear to auscultation bilaterally Cardio: Rate: regular rate Rhythm: regular rhythm Heart sounds: no murmurs GI: Inspection: distended GI Palp: Yes Soft to palpation, No Tenderness to palpation present (GI), No Guarding due to palpation present (GI) and No Rigid due to palpation Auscultation: normal bowel sounds : Penis: Yes circumcised Scrotum: scrotum normal Skin: General skin exam: normal color Rashes: no rashes Neuro: General: patient oriented x3, moves all extremities and CN's II-XI intact bilaterally Course Reevaluation(s) Reevaluation #1: I discussed discharge plan with patient to go home with herman catheter. Date: 07/04/21 Time: 00:48 Consultations Consultation #1: I discussed case with Dr. Montes who agrees patient can be discharged with herman catheter in place and follow up with appointment Date: 07/04/21 Time: 00:47 Vital Signs Vital signs: Vital Signs Temperature 97.3 F L 07/03/21 21:01 Pulse Rate 85 07/03/21 21:01 Respiratory Rate 18 07/03/21 21:01 Blood Pressure 155/72 H 07/03/21 21:01 Pulse Oximetry 96 07/03/21 21:01 Temperature 97.3 F L 07/03/21 21:01 Pulse Rate 85 07/03/21 21:01 Respiratory Rate 18 07/03/21 21:01 Blood Pressure 155/72 H 07/03/21 21:01 Pulse Oximetry 96 07/03/21 21:01 Medical Decision Making Vital Signs Vital Signs: Vital Signs Temperature 97.3
[2021-07-03 23:15] LABS: Add Urine Microscopic? YES; Appearance Urine Clear (Clear); Bilirubin Urine Negative (Negative); Blood Urine 3+ (Negative); Color Urine Yellow (Yellow); Glucose Urine UA Negative (Negative); Ketones Urine Negative (Negative); Leukocyte Esterase Ur Trace LEU/UL (Negative); Mucus Urine Rare /lpf; Nitrate Urine Negative (Negative); Protein Urine Negative (Negative); RBC Urine 21-50 /hpf (0-2); Specific Grav Ur 1.006 (1.001-1.035); Urobilinogen Urine Negative mg/dL (<2.0)
[2021-07-03 23:28] LABS: Basophils Percent Auto 0.4 % (0.2-1.2); Eosinophils Absolute Auto 0.1 K/mm3 (0-0.3); Eosinophils Percent Auto 1.5 % (0-4.4); Hematocrit 41.4 % (42.0-52.0); Hemoglobin 13.7 g/dL (14.0-18.0); Immature Granulocyte Absolute 0.02 K/mm3 (0.00-0.031); Immature Granulocyte Percent A 0.2 % (0-0.5); Lymphocytes Absolute Auto 1.03 K/mm3 (0.9-3.2); Lymphocytes Percent Auto 12.5 % (18.3-44.2); Mean Corpuscular HGB Conc 33.1 g/dl (32-36); Mean Corpuscular Hemoglobin 28.1 pg (26-34); Mean Platelet Volume 10.9 fl (7.4-10.4); Monocytes Absolute Auto 0.6 K/mm3 (0.1-0.6); Neutrophils Absolute Auto 6.5 K/mm3 (1.3-6.7); Neutrophils Percent Auto 78.4 % (45.5-73.1); Platelet Count Result 230 k/mm3 (150-375); Red Blood Count 4.87 M/mm3 (4.6-6.20); Red Cell Distribution Width 13.4 % (11.5-14.5); White Blood Count 8.3 K/mm3 (4.5-10.0)
[2021-07-03 23:40] LABS: Alanine Aminotransferase 25 U/L (4-50); Albumin Level 4.5 g/dL (3.5-5.1); Alkaline Phosphatase 45 U/L (38-126); Anion Gap 11 mmol/L (8-16); Aspartate Amino Transferase 32 U/L (17-59); Bilirubin,Total 1.2 mg/dL (0.2-1.3); Blood Urea Nitrogen 15 mg/dL (9-20); Calcium 9.9 mg/dL (8.4-10.2); Carbon Dioxide 17 mmol/L (22-30); Chloride 104 mmol/L (98-107); Estimated CRCL calculation 50 ml/min; Estimated Glomerular Filt Rate 46; Glucose 126 mg/dL (65-110); Potassium 3.8 mmol/L (3.4-5.0); Sodium 132 mmol/L (137-145)
== END 2021-07-04 01:09 | disposition home or self-care (01) ==
PROVIDERS: Emergency Provider General Practice; PCP Student in an Organized Health Care Education/Training Program
DX: R33.9 Retention of urine, unspecified (principal); N21.0 Calculus in bladder; Z87.891 Personal history of nicotine dependence
CPT/HCPCS: 36415; 51702; 74018; 80053; 81001; 85025; 87086; 99283

== ENCOUNTER 2021-07-11 21:45 | Emergency (ER) | payer OTHER, SELFPAY ==
[2021-07-11 21:47] VITALS: BP 154/74; PULSE 64; RESP 18; TEMP 36.5; O2SAT 98
--- NOTE | 2021-07-11 22:19 | ED.ALCOHOL ---
HPI - Alcohol General Chief Complaint: Urogenital-Male Stated Complaint: Urinary Retention Time Seen by Provider: 07/11/21 22:04 History of Present Illness HPI narrative: Patient presents with abdominal pain. Patient reports he was at his urologist today and had his ureteral stent removed well as his Hackett catheter. Monitor symptoms throughout the day however was unable to urinate. His catheter was removed around 1230 today. Reports pressure in his abdomen constant no radiation no clear aggravating or alleviating factors. Related Data Home Medications Medication Instructions Recorded Confirmed finasteride 5 mg PO DAILY 06/15/21 06/29/21 tamsulosin 0.4 mg PO HS 06/15/21 06/29/21 Allergies Allergy/AdvReac Type Severity Reaction Status Date / Time Penicillins Allergy Unknown Rash Verified 06/29/21 09:35 Review of Systems Review of Systems: CONSTITUTIONAL: Denies fever, chills, or sweats. EYES: Denies visual changes, redness, or discharge. ENT: Denies rhinorrhea, congestion, sore throat, or otalgia. CARDIOVASCULAR: Denies chest pain, palpitations, or edema. RESPIRATORY: Denies cough or dyspnea. GASTROINTESTINAL: Denies abdominal pain, nausea, vomiting, or diarrhea. GENITOURINARY: Denies dysuria or hematuria. SKIN: Denies rash or itching. MUSCULOSKELETAL: Denies back pain, joint pain, or myalgia. NEUROLOGIC: Denies headache, numbness, dizziness, or weakness. PSYCHIATRIC: Denies anxiety or depression. All systems reviewed & are unremarkable except as noted in HPI and below PMFSH Past Medical History Medical History Bladder stone Screening for abdominal aortic aneurysm Screening PSA (prostate specific antigen) Skin lesions Vitamin D deficiency disease Social History Social History Social History: Patient lives at home with his Malena that he has been to for 56 years with no pets. 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 HEAD: Normocephalic, atraumatic. EYES: PERRLA and EOMI. ENT: Nares clear, no rhinorrhea or epistaxis. Mucous membranes moist. NECK: Supple. No masses. No JVD ABDOMEN: Mild tenderness in the suprapubic area soft, nondistended EXTREMITIES: Normal range of motion. No edema. SKIN: Warm, dry, no rash. NEURO: No focal deficits. Alert and oriented x3. PSYCH: Normal mood and affect. Course Course Emergency Course: Patient had Hackett catheter placed in the ER and had large relief of his symptoms. Vital Signs Vital signs: Vital Signs Temperature 36.5 C 07/11/21 21:47 Pulse Rate 64 07/11/21 21:47 Respiratory Rate 18 07/11/21 21:47 Blood Pressure 154/74 H 07/11/21 21:47 Pulse Oximetry 98 07/11/21 21:47 Temperature 36.5 C 07/11/21 21:47 Pulse Rate 68 07/11/21 22:49 Respiratory Rate 16 07/11/21 22:49 Blood Pressure 147/82 H 07/11/21 22:49 Pulse Oximetry 99 07/11/21 22:49 MDM - Alcohol MDM Narrative Medical decision making narrative: H&P as above, vss, pt looks clinically well, exam mild abdominal pain, labs with RBCs and WBCs in urine likely related to recent procedures will wait for cultures, prior UAs had similar findings and urine cultures had no growth. Bladder scan with greater than 500 additional la
[2021-07-11 22:45] LABS: Add Urine Microscopic? YES; Appearance Urine Clear (Clear); Bilirubin Urine Negative (Negative); Blood Urine 3+ (Negative); Color Urine Yellow (Yellow); Glucose Urine UA Negative (Negative); Ketones Urine Negative (Negative); Leukocyte Esterase Ur 1+ LEU/UL (Negative); Mucus Urine Rare /lpf; Nitrate Urine Negative (Negative); Protein Urine 1+ mg/dL (Negative); RBC Urine 21-50 /hpf (0-2); Specific Grav Ur 1.016 (1.001-1.035); Urobilinogen Urine Negative mg/dL (<2.0)
[2021-07-11 22:49] VITALS: BP 147/82; PULSE 68; RESP 16; O2SAT 99
== END 2021-07-11 22:51 | disposition home or self-care (01) ==
LOC: ANHED 22:35
PROVIDERS: Emergency Provider Emergency Medicine; PCP Student in an Organized Health Care Education/Training Program
DX: R33.9 Retention of urine, unspecified (principal); E55.9 Vitamin D deficiency, unspecified; Z87.891 Personal history of nicotine dependence
CPT/HCPCS: 51702; 81001; 87086; 99283

== ENCOUNTER 2021-07-20 01:39 | Emergency (ER) | payer OTHER, SELFPAY ==
[2021-07-20 01:41] VITALS: BP 149/66; PULSE 64; RESP 16; TEMP 36.6; O2SAT 99
[2021-07-20 02:05] VITALS: BP 142/75; PULSE 61; RESP 18; TEMP 36.6; O2SAT 99
--- NOTE | 2021-07-20 03:26 | ED.GENADULT ---
HPI - General Adult General Chief complaint: Urogenital-Male Stated complaint: catheter problems Time Seen by Provider: 07/20/21 01:57 History of Present Illness HPI narrative: Patient presents with Hackett catheter concern. Pain reports he saw his urologist today had a voiding trial was unsuccessful Hackett was replaced. Patient initially doing well today but but notice his Hackett stopped draining around 2190 continue to monitor it however there to be no drainage he had increased pressure so he came to the ER for evaluation. Denies any fevers, chills, nausea, vomiting, back pain Related Data Home Medications Medication Instructions Recorded Confirmed finasteride 5 mg PO DAILY 06/15/21 06/29/21 tamsulosin 0.4 mg PO HS 06/15/21 06/29/21 Allergies Allergy/AdvReac Type Severity Reaction Status Date / Time Penicillins Allergy Unknown Rash Verified 06/29/21 09:35 Review of Systems Review of Systems: CONSTITUTIONAL: Denies fever, chills, or sweats. EYES: Denies visual changes, redness, or discharge. ENT: Denies rhinorrhea, congestion, sore throat, or otalgia. CARDIOVASCULAR: Denies chest pain, palpitations, or edema. RESPIRATORY: Denies cough or dyspnea. GASTROINTESTINAL: Denies nausea, vomiting, or diarrhea. GENITOURINARY: Reports Hackett is not draining SKIN: Denies rash or itching. MUSCULOSKELETAL: Denies back pain, joint pain, or myalgia. NEUROLOGIC: Denies headache, numbness, dizziness, or weakness. PSYCHIATRIC: Denies anxiety or depression. All systems reviewed & are unremarkable except as noted in HPI and below PMFSH Past Medical History Medical History Bladder stone Screening for abdominal aortic aneurysm Screening PSA (prostate specific antigen) Skin lesions Vitamin D deficiency disease Social History Social History Social History: Patient lives at home with his Malena that he has been to for 56 years with no pets. 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 HEAD: Normocephalic, atraumatic. EYES: PERRLA and EOMI. ENT: Nares clear, no rhinorrhea or epistaxis. Mucous membranes moist. NECK: Supple. No masses. No JVD ABDOMEN: Mild tenderness with palpation suprapubic area soft, nondistended, normal active bowel sounds. : Hackett in place no active drainage EXTREMITIES: Normal range of motion. No edema. SKIN: Warm, dry, no rash. NEURO: No focal deficits. Alert and oriented x3. PSYCH: Normal mood and affect. Course Reevaluation(s) Reevaluation #1: Patient is feeling much improved Date: 07/20/21 Time: 03:21 Vital Signs Vital signs: Vital Signs Temperature 36.6 C 07/20/21 01:41 Pulse Rate 64 07/20/21 01:41 Respiratory Rate 16 07/20/21 01:41 Blood Pressure 149/66 H 07/20/21 01:41 Pulse Oximetry 99 07/20/21 01:41 Temperature 36.6 C 07/20/21 02:05 Pulse Rate 60 07/20/21 03:40 Respiratory Rate 18 07/20/21 03:40 Blood Pressure 140/73 07/20/21 03:40 Pulse Oximetry 99 07/20/21 03:40 Medical Decision Making [facility] Narrative Medical decision making narrative: H&P as above, vss, pt looks clinically well, exam with minimal tenderness in the suprapubic area, bedside ultrasound confirms Hackett in the appropriate place urine noted
[2021-07-20 03:40] VITALS: BP 140/73; PULSE 60; RESP 18; O2SAT 99
== END 2021-07-20 03:43 | disposition home or self-care (01) ==
PROVIDERS: Emergency Provider Emergency Medicine; PCP Student in an Organized Health Care Education/Training Program
DX: T83.9XXA Unspecified complication of genitourinary prosthetic device, implant and graft, initial encounter (principal); E55.9 Vitamin D deficiency, unspecified; Z87.891 Personal history of nicotine dependence; Z87.442 Personal history of urinary calculi
CPT/HCPCS: 99283

== ENCOUNTER 2021-07-24 11:40 | Outpatient (CLI) | payer OTHER, SELFPAY ==
[2021-07-24 13:13] LABS: Anion Gap 8 mmol/L (8-16); Blood Urea Nitrogen 16 mg/dL (9-20); Carbon Dioxide 25 mmol/L (22-30); Chloride 108 mmol/L (98-107); Estimated Glomerular Filt Rate > 60; Glucose 110 mg/dL (65-110); Potassium 4.2 mmol/L (3.4-5.0); Sodium 141 mmol/L (137-145)
== END 2021-07-24 11:41 | disposition home or self-care (01) ==
LOC: ANHSURGERY 11:41
PROVIDERS: PCP Student in an Organized Health Care Education/Training Program; Visit Provider Urology
DX: Z01.812 Encounter for preprocedural laboratory examination (principal); N21.0 Calculus in bladder
CPT/HCPCS: 36415; 80048; 87077; 87086; 87088; 87186

== ENCOUNTER 2021-07-29 10:07 | Emergency (ER) | payer OTHER, SELFPAY ==
[2021-07-29 10:28] VITALS: BP 154/71; PULSE 77; RESP 16; TEMP 36.9; O2SAT 97
--- NOTE | 2021-07-29 10:43 | PC.NURSE ---
urinary drainage bag attached and flushed by this rn. catheter easy to flush and pull urine back. pt now draining dark brown urine into bag. appro 300cc out initially.
[2021-07-29 10:54] LABS: Basophils Percent Auto 0.6 % (0.2-1.2); Eosinophils Absolute Auto 0.1 K/mm3 (0-0.3); Eosinophils Percent Auto 1.2 % (0-4.4); Hematocrit 41.9 % (42.0-52.0); Hemoglobin 13.8 g/dL (14.0-18.0); Immature Granulocyte Absolute 0.01 K/mm3 (0.00-0.031); Immature Granulocyte Percent A 0.2 % (0-0.5); Lymphocytes Absolute Auto 1.01 K/mm3 (0.9-3.2); Lymphocytes Percent Auto 20.5 % (18.3-44.2); Mean Corpuscular HGB Conc 32.9 g/dl (32-36); Mean Corpuscular Hemoglobin 28.8 pg (26-34); Mean Corpuscular Volume 87.3 fl (80-100); Mean Platelet Volume 10.3 fl (7.4-10.4); Monocytes Absolute Auto 0.2 K/mm3 (0.1-0.6); Monocytes Percent Auto 4.7 % (2.6-8.5); Neutrophils Absolute Auto 3.6 K/mm3 (1.3-6.7); Neutrophils Percent Auto 72.8 % (45.5-73.1); Platelet Count Result 180 k/mm3 (150-375); Red Cell Distribution Width 13.2 % (11.5-14.5); White Blood Count 4.9 K/mm3 (4.5-10.0)
[2021-07-29 11:04] LABS: Anion Gap 8 mmol/L (8-16); Blood Urea Nitrogen 19 mg/dL (9-20); Carbon Dioxide 24 mmol/L (22-30); Chloride 107 mmol/L (98-107); Estimated CRCL calculation 64 ml/min; Estimated Glomerular Filt Rate > 60; Glucose 122 mg/dL (65-110); Potassium 3.9 mmol/L (3.4-5.0); Sodium 139 mmol/L (137-145)
[2021-07-29 11:07] LABS: Add Urine Microscopic? YES; Appearance Urine Clear (Clear); Bacteria Urine Trace /hpf; Bilirubin Urine Negative (Negative); Blood Urine 3+ (Negative); Color Urine Amber (Yellow); Glucose Urine UA Negative (Negative); Ketones Urine Negative (Negative); Leukocyte Esterase Ur Negative LEU/UL (Negative); Nitrate Urine Negative (Negative); Protein Urine 2+ mg/dL (Negative); RBC Urine >75 /hpf (0-2); Specific Grav Ur 1.011 (1.001-1.035); Squamous Epithelial Cell Urine Rare /hpf (Few); Urobilinogen Urine Negative mg/dL (<2.0)
--- NOTE | 2021-07-29 11:52 | ED.GENADULT ---
HPI - General Adult General Chief complaint: Urogenital-Male Stated complaint: catheter not draining Time Seen by Provider: 07/29/21 10:24 Source: patient History of Present Illness HPI narrative: Patient is 76 y/o male complaining of Hackett catheter not draining since about 6:00 AM today. He feels bladder distention. There is no known alleviating or exacerbating factor. He had his catheter changed about 10 days ago and he is scheduled to have prostate surgery in 2 days. Related Data Home Medications Medication Instructions Recorded Confirmed finasteride 5 mg PO DAILY 06/15/21 07/23/21 Allergies Allergy/AdvReac Type Severity Reaction Status Date / Time Penicillins Allergy Unknown Rash Verified 07/29/21 10:31 Review of Systems Constitutional: Constitutional: Denies chills, Denies fever(s), Denies headache(s) and Denies weakness Eyes: Eyes: Denies blurry vision ENT: Denies headache(s) and Denies neck pain Cardiovascular: Cardiovascular: Denies chest pain and Denies dyspnea Respiratory: Respiratory: Denies cough and Denies dyspnea Gastrointestinal: Gastrointestinal: Denies abdominal pain, Denies diarrhea, Denies nausea and Denies vomiting Genitourinary: Genitourinary: Reports as per HPI, Denies hematuria, Denies dysuria and Reports other (catheter not draining) Musculoskeletal: Musculoskeletal: Denies back pain and Denies neck pain Neurologic: Denies headache(s) and Denies weakness PMFSH Past Medical History Medical History Bladder stone Screening for abdominal aortic aneurysm Screening PSA (prostate specific antigen) Skin lesions Vitamin D deficiency disease Social History Social History Social History: Patient lives at home with his Carina that he has been to for 56 years with no pets. 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 Gender identity (if verbalized by the patient): Male Sexual Orientation (if Verbalized by the Patient): Straight or Heterosexual Spiritual care concerns: No Agree to blood products: Yes Exam Const: General: no acute distress and well developed Orientation/consciousness: oriented to person, oriented to place, oriented to time and patient oriented x3 HENMT: Head: normocephalic Ears: external ears normal General nose exam: Normal external nose present Eyes: General: appearance normal, both eyes and all related structures Conjunctivae: conjunctivae normal Neck: Neck: normal visual inspection and full ROM Chest: Chest palpation & inspection: normal inspection of the chest and no tenderness Resp: Effort & Inspection: normal respiratory effort Auscultation: clear to auscultation bilaterally Cardio: Rate: regular rate Rhythm: regular rhythm GI: GI Palp: No abdominal tenderness and Yes Soft to palpation : General: Yes other (Hackett catheter in place, urine somewhat bloody) Skin: General skin exam: normal color and turgor normal Neuro: General: oriented to person, oriented to place, oriented to time and patient oriented x3 Cognition (Neuro): normal cognition Extrem: General: normal to inspection, full ROM and no pedal edema Psych: Appearance: grossly normal Mental Status: mental status grossly normal Affect: normal affect Course Reevaluation(s) Reevaluation #1: Bladder scan steven
[2021-07-29 12:21] VITALS: BP 134/86; PULSE 75; RESP 18; O2SAT 100
== END 2021-07-29 12:23 | disposition home or self-care (01) ==
PROVIDERS: Emergency Provider Emergency Medicine; PCP Student in an Organized Health Care Education/Training Program
DX: T83.091A Other mechanical complication of indwelling urethral catheter, initial encounter (principal); Z87.891 Personal history of nicotine dependence; E55.9 Vitamin D deficiency, unspecified
CPT/HCPCS: 36415; 80048; 81001; 85025; 87077; 87086; 87088; 99283

== ENCOUNTER 2021-08-01 15:56 | Observation (INO) | payer OTHER, SELFPAY ==
[2021-07-23 14:56] VITALS: BMI 33.3
[2021-07-31] VITALS (15 sets, daily range): BP systolic 100–147; BP diastolic 52–79; PULSE 52–78; RESP 13–20; TEMP 36.2–36.9; O2SAT 96–100
--- NOTE | 2021-07-31 12:14 | WPDHPUPDATE1 ---
History and Physical Update Update Date/Time: 07/31/21 12:14 History and Physical has been reviewed, including an updated exam of the patient. There are NO changes in the patient's condition. Risks, benefits, and alternatives have been discussed and questions answered. Patient agrees to proceed with procedure.
--- NOTE | 2021-07-31 12:44 | WPDANESEPPF ---
Anes - Initial Pre Proc Eval Procedure: Operation Date: 07/31/21 14:00 Proposed Procedures p Trans Urethral Resection Prostate - Suresh Diggs MD s Cystoscopy, Bladder Stone Removal - Suresh Diggs MD s Possible Holmium Laser - Suresh Diggs MD Date/Time: 07/31/21 12:44 Surgeon: Suresh Diggs MD Pre Op Diagnosis: Bladder Stones, BPH Patient Data Age: 76 Gender: M Height: 1.83 m Weight: 111.5 kg Allergies Allergy/AdvReac Type Severity Reaction Status Date / Time Penicillins Allergy Unknown Rash Verified 07/29/21 10:31 Home Medications Medication Instructions Recorded Confirmed Type finasteride 5 mg PO DAILY 06/15/21 07/23/21 History tamsulosin 0.4 mg capsule 0.4 mg PO HS #30 cap 07/25/21 Rx Patient hx anesthesia problems: none Family hx anesthesia problems: none PMFSH Past Medical History Medical History Bladder stone Screening for abdominal aortic aneurysm Screening PSA (prostate specific antigen) Skin lesions Vitamin D deficiency disease Surgical History Surgical History (Updated 07/31/21 @ 12:44 by Lion Chu MD) H/O hernia repair Hx of cystoscopy Social History Social History Social History: Patient lives at home with his Carina that he has been to for 56 years with no pets. 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 Gender identity (if verbalized by the patient): Male Sexual Orientation (if Verbalized by the Patient): Straight or Heterosexual Spiritual care concerns: No Agree to blood products: Yes Anes - Eval Final PreProcedure Day of Procedure 07/31/21 12:44 Patient weight: obese Heart: regular rate and rhythm Lungs: clear to auscultation Airway: Mallampati scale class II Neurological: alert and oriented Last oral intake: >/= 8 hours ASA classification: II Emergent: no Anesthetic plan: proceed Anesthesia type and monitoring: general LMA and standard monitoring Informed Consent: The patient's anesthetic plan and its attendant risks and benefits were discussed with the patient/family/POA. Questions were solicited and answers provided to the satisfaction of the patient/family/POA.
[2021-07-31] MEDS: LACTATED RINGERS 1,000 ML 30 ML IV CONT (12:45)
--- NOTE | 2021-07-31 13:28 | WPDHPUPDATE1 ---
History and Physical Update Update Date/Time: 07/31/21 13:28 History and Physical has been reviewed, including an updated exam of the patient. There are NO changes in the patient's condition. Risks, benefits, and alternatives have been discussed and questions answered. Patient agrees to proceed with procedure.
[2021-07-31] MEDS: ceFAZolin 2 GM/D5W 50 ML 2 GM/50 ML BAG IVPB (13:46)
[2021-07-31] MEDS: LIDOCAINE HCL 2% GEL UROJET 10 ML PKG MUCOUS MEM (14:09)
--- NOTE | 2021-07-31 15:31 | W.PM.PROC2 ---
Procedure Note - Detailed Date of Procedure 07/31/21 Pre-op Diagnosis Bladder Stones, BPH Post-op Diagnosis same Procedure Performed Cysto with holmium laser bladder stone, transurethral resection of prostate Surgeon Suresh Diggs MD Anesthesia general Description of Procedure Patient is taken the operative suite and correctly identified. Once anesthesia was obtained he was placed in dorsal lithotomy position and prepped draped usual sterile fashion. Twenty-two Slovenian scope was inserted the bladder. He has marked lateral lobe hypertrophy with a large median lobe. He has multiple bladder diverticuli. A Lee stone was visualized in up diverticulum on the posterior right side. Using a holmium laser fiber we fragmented the stone and then retrieve the pieces. These were sent for analysis. We then switched out to a 24 Slovenian resectoscope sheath. The prostate was then resected with the lateral lobes from the bladder neck to the verumontanum. The median lobe was also resected. Hemostasis was achieved using electrocautery. Prostate chips were sent for analysis. 2% viscous lidocaine was inserted into the urethra. Twenty-four Slovenian [address] was placed with 20 cc in the balloon. It was placed to continuous bladder irrigation and patient is taken recovery stable condition. Patient will be admitted for CBI. Estimated Blood Loss 100 Drains Yes Packing No Pathology yes Complications No immediate complications Condition stable Disposition PACU
[2021-07-31] MEDS: fentaNYL CITRATE INJ (*CRX) 100 MCG/2 ML VIAL 25 MCG IV PUSH ×8 (16:08→16:52)
--- NOTE | 2021-07-31 18:02 | PC.NURSE ---
This patient, Sea Godinez, was admitted to Medical Room 253-01. Patient/family oriented to hospital policies and general routines including ID bracelet, bed and alarms, visiting hours, pain management, procedures, bathroom and other care routines, personal items, smoking policy, room service/diet, and visiting hours. Information on how to activate the Rapid Response Team has been discussed. Patient/Family are encouraged to report perceived risks to care and to ask questions if they do not understand what they are told or what they should do.
[2021-07-31] MEDS: DOCUSATE SODIUM 100 MG CAPSULE PO (20:28)
[2021-08-01] VITALS (8 sets, daily range): BP systolic 113–126; BP diastolic 55–65; PULSE 55–70; RESP 16–18; TEMP 36.2–37.2; O2SAT 96–98
[2021-08-01] MEDS: ONDANSETRON INJ 4 MG/2 ML VIAL IV PUSH (04:17)
[2021-08-01 05:58] LABS: Hematocrit 37.3 % (42.0-52.0); Hemoglobin 12.3 g/dL (14.0-18.0)
[2021-08-01 05:59] LABS: Anion Gap 5 mmol/L (8-16); Blood Urea Nitrogen 14 mg/dL (9-20); Calcium 8.5 mg/dL (8.4-10.2); Carbon Dioxide 25 mmol/L (22-30); Chloride 106 mmol/L (98-107); Estimated CRCL calculation 70 ml/min; Estimated Glomerular Filt Rate > 60; Glucose 106 mg/dL (65-110); Potassium 4.1 mmol/L (3.4-5.0); Sodium 136 mmol/L (137-145)
[2021-08-01] MEDS: DOCUSATE SODIUM 100 MG CAPSULE PO ×2 (08:29→20:49)
--- NOTE | 2021-08-01 08:53 | WPDANESPN ---
Anes - Prog Note Post-Op Date/Time: 08/01/21 08:53 Cardiovascular status: normal Respiratory status: normal Airway patency: baseline Mental status: baseline Post-Op hydration status: normal Vital Signs: Last Vital Signs Temp 97.8 F 08/01/21 06:00 Pulse 58 L 08/01/21 06:00 Resp 18 08/01/21 06:00 BP 124/65 08/01/21 06:00 Pulse Ox 97 08/01/21 06:00 Pain Score (VAS): 0 I/O: Intake & Output 07/31/21 08/01/21 08/01/21 23:59 07:59 15:59 Intake Total 250 800 Output Total 5840 750 Balance -5590 50 Laboratory Tests 08/01/21 05:35 08/01/21 05:35 08/01/21 08/01/21 05:35 05:35 Hgb 12.3 L Hct 37.3 L Sodium 136 L Potassium 4.1 Chloride 106 Carbon Dioxide 25 Anion Gap 5 L BUN 14 D Creatinine 1.00 Estim Creat Clear Calc 70 Estimated GFR > 60 Glucose 106 Calcium 8.5 Post-procedural complaints: none Patient Feedback: Patient satisfied with anesthetic care.
[2021-08-01] MEDS: CEPHALEXIN 500 MG CAPSULE PO ×3 (12:27→20:49)
--- NOTE | 2021-08-01 14:28 | WPDUROPN2 ---
Progress Note: A&P Assessment and Plan (1) Gross hematuria: Code(s): R31.0 - Gross hematuria Status: Acute Assessment and Plan: Restart CBI, wean to off overnight and we will re-evaluate in the morning. Patient will keep herman in until Friday after discharge. I anticipate discharge tomorrow if urine is more clear off CBI. (2) BPH (benign prostatic hyperplasia): Qualifiers: Lower urinary tract symptom presence: symptoms present Lower urinary tract symptom detail: urinary frequency Qualified Code(s): N40.1 - Benign prostatic hyperplasia with lower urinary tract symptoms; R35.0 - Frequency of micturition Code(s): N40.0 - Benign prostatic hyperplasia without lower urinary tract symptoms Status: Acute Subjective Subjective Date/Time Seen: 08/01/21 14:28 POD #1 Cysto with holmium laser bladder stone, transurethral resection of prostate. Patient is tolerating his diet well, urine is clear on CBI. CBI turned off this morning, this afternoon it is bloody. Patient has no pain and is tolerating diet and activity well. Review of Systems Cardiovascular: Cardiovascular: Denies chest pain Respiratory: Respiratory: Reports no additional respiratory complaints Gastrointestinal: Gastrointestinal: Denies abdominal pain, Denies nausea and Denies vomiting Genitourinary: Genitourinary: Reports hematuria and Denies flank pain Exam Resp: Effort & Inspection: normal respiratory effort Cardio: Rate: regular rate GI: GI Palp: Yes Soft to palpation and No Tenderness to palpation present (GI) : General: Yes no CVA tenderness Urinary Catheter: Urinary Catheter: patent and draining and urine red Extrem: General: no edema Objective Data Vital Signs Vital Signs: Vital Signs - 24 hr 07/31/21 15:36 07/31/21 15:45 07/31/21 16:00 Temperature 97.1 F L Pulse Rate 52 L 54 L 64 Respiratory Rate 14 15 13 Blood Pressure 100/65 106/69 132/75 Pulse Oximetry 98 98 100 07/31/21 16:15 07/31/21 16:30 07/31/21 16:45 Temperature Pulse Rate 68 64 60 Respiratory Rate 15 20 17 Blood Pressure 134/75 132/77 139/79 Pulse Oximetry 100 100 100 07/31/21 17:00 07/31/21 17:15 07/31/21 17:30 Temperature 98.1 F Pulse Rate 61 62 78 Respiratory Rate 14 16 16 Blood Pressure 128/77 124/76 130/61 Pulse Oximetry 100 100 100 07/31/21 17:45 07/31/21 18:15 07/31/21 19:15 Temperature 98.2 F 98.2 F 98.4 F Pulse Rate 78 77 77 Respiratory Rate 16 16 16 Blood Pressure 130/52 L 128/60 128/54 L Pulse Oximetry 100 100 100 07/31/21 20:20 07/31/21 23:04 08/01/21 03:04 Temperature 97.4 F L 97.2 F L Pulse Rate 77 58 L 55 L Respiratory Rate 16 18 18 Blood Pressure 119/57 L 113/58 L Pulse Oximetry 100 96 96 08/01/21 06:00 08/01/21 10:04 Temperature 97.8 F 97.7 F Pulse Rate 58 L 62 Respiratory Rate 18 16 Blood Pressure 124/65 115/61 Pulse Oximetry 97 97 Intake/Output Intake/Output: Intake & Output 07/29/21 07/30/21 07/31/21 08/01/21 23:59 23:59 23:59 23:59 Intake Total 250 800 Output Total 5840 750 Balance -5590 50 Meds/Results Medications: Active Medications Generic Name Dose Route Start Last Admin Trade Name Freq PRN Reason Stop Dose Admin Hydrocodone Bitart/Acetaminophen 1 tab 07/31/21 17:19 Hydrocodone/Acetaminophen (*Crx) 5-325 Mg Tablet PO Q4H PRN Pain Rated 1-6 Cephalexin HCl 500 mg 08/01/21 13:00 08/01/21 12:27 Cephalexin 500 Mg Capsule PO 500 mg QID DAVID Administration Docusate Sodium 100 mg 07/31/21 21:00 08/01/21 08:29 Docusate Sodium 100 Mg Capsule PO 100 mg Q12HR DAVID Administration Hyoscyamine 0.125 mg 07/31/21 17:19 Hyoscyamine Sulfate 0.125 Mg Tablet SUBLINGUAL Q6H PRN Bladder Spasm Morphine Sulfate 2 mg 07/31/21 17:19 Morphine Sulfate (*Crx) 2 Mg/Ml Inj IV PUSH Q2H PRN Pain Rated 7-10 Naloxone HCl 0.1 mg 07/31/21 17:19 Naloxone Hcl 0.4 Mg/Ml Vial IV PUSH Q2M PRN
[2021-08-02 01:06] VITALS: BP 110/59; PULSE 59; RESP 16; TEMP 36.3; O2SAT 91
[2021-08-02 05:24] VITALS: BP 132/61; PULSE 61; RESP 16; TEMP 36.7; O2SAT 94
--- NOTE | 2021-08-02 08:40 | WPDUROPN2 ---
Progress Note: A&P Assessment and Plan (1) Gross hematuria: Code(s): R31.0 - Gross hematuria Status: Acute Assessment and Plan: Improved, stopped CBI, it was on a very slow drip this morning. Will re-assess in a few hours and if light pink ok to discharge home with herman until Friday. (2) BPH (benign prostatic hyperplasia): Qualifiers: Lower urinary tract symptom presence: symptoms present Lower urinary tract symptom detail: urinary frequency Qualified Code(s): N40.1 - Benign prostatic hyperplasia with lower urinary tract symptoms; R35.0 - Frequency of micturition Code(s): N40.0 - Benign prostatic hyperplasia without lower urinary tract symptoms Status: Acute Subjective Subjective Date/Time Seen: 08/02/21 08:40 POD #2 Cysto with holmium laser bladder stone, transurethral resection of prostate. Patient is tolerating his diet well, urine is clear on very slow CBI. CBI turned off this morning, will check in a couple of hours. Patient has no pain and is tolerating diet and activity well. Review of Systems Cardiovascular: Cardiovascular: Denies chest pain Respiratory: Respiratory: Reports no additional respiratory complaints Gastrointestinal: Gastrointestinal: Denies abdominal pain, Denies nausea and Denies vomiting Genitourinary: Genitourinary: Reports hematuria and Denies flank pain Exam Resp: Effort & Inspection: normal respiratory effort Cardio: Rate: regular rate GI: GI Palp: No Soft to palpation and No Tenderness to palpation present (GI) : General: Yes no CVA tenderness Urinary Catheter: Urinary Catheter: patent and draining, urine clear and urine pink Extrem: General: no edema Objective Data Vital Signs Vital Signs: Vital Signs - 24 hr 08/01/21 10:04 08/01/21 14:30 08/01/21 15:00 Temperature 97.7 F 98.4 F Pulse Rate 62 70 Respiratory Rate 16 16 Blood Pressure 115/61 123/55 L 123/55 L Pulse Oximetry 97 96 08/01/21 18:20 08/01/21 20:00 08/01/21 21:23 Temperature 98.9 F 98.7 F Pulse Rate 67 68 68 Respiratory Rate 16 16 16 Blood Pressure 126/60 120/61 Pulse Oximetry 97 98 98 08/02/21 01:06 08/02/21 05:24 Temperature 97.3 F L 98.1 F Pulse Rate 59 L 61 Respiratory Rate 16 16 Blood Pressure 110/59 L 132/61 Pulse Oximetry 91 94 Intake/Output Intake/Output: Intake & Output 07/30/21 07/31/21 08/01/21 08/02/21 23:59 23:59 23:59 23:59 Intake Total 250 800 640 Output Total 5840 2500 Balance -8108 -4095 640 Meds/Results Medications: Active Medications Generic Name Dose Route Start Last Admin Trade Name Freq PRN Reason Stop Dose Admin Hydrocodone Bitart/Acetaminophen 1 tab 07/31/21 17:19 Hydrocodone/Acetaminophen (*Crx) 5-325 Mg Tablet PO Q4H PRN Pain Rated 1-6 Cephalexin HCl 500 mg 08/01/21 13:00 08/01/21 20:49 Cephalexin 500 Mg Capsule PO 500 mg QID DAVID Administration Docusate Sodium 100 mg 07/31/21 21:00 08/01/21 20:49 Docusate Sodium 100 Mg Capsule PO 100 mg Q12HR DAVID Administration Hyoscyamine 0.125 mg 07/31/21 17:19 Hyoscyamine Sulfate 0.125 Mg Tablet SUBLINGUAL Q6H PRN Bladder Spasm Morphine Sulfate 2 mg 07/31/21 17:19 Morphine Sulfate (*Crx) 2 Mg/Ml Inj IV PUSH Q2H PRN Pain Rated 7-10 Naloxone HCl 0.1 mg 07/31/21 17:19 Naloxone Hcl 0.4 Mg/Ml Vial IV PUSH Q2M PRN Opiate Reversal Ondansetron HCl 4 mg 07/31/21 17:19 08/01/21 04:17 Ondansetron Inj 4 Mg/2 Ml Vial IV PUSH 4 mg Q12H PRN Administration Nausea And Vomiting
[2021-08-02] MEDS: CEPHALEXIN 500 MG CAPSULE PO (09:20)
[2021-08-02] MEDS: DOCUSATE SODIUM 100 MG CAPSULE PO (09:20)
[2021-08-02 10:00] VITALS: BP 115/45; PULSE 71; RESP 16; TEMP 36.8; O2SAT 97
--- NOTE | 2021-08-02 10:46 | PM.DS ---
DS: Admitting Diagnosis Discharge Date 08/02/2021 Admitting Diagnosis BPH, Gross Hematuria, Retention, Bladder Stone DS: Discharge Diagnosis Discharge Diagnosis (1) Gross hematuria: Code(s): R31.0 - Gross hematuria Status: Acute (2) Bladder stone: Code(s): N21.0 - Calculus in bladder Status: Acute (3) BPH (benign prostatic hyperplasia): Qualifiers: Lower urinary tract symptom presence: symptoms present Lower urinary tract symptom detail: urinary frequency Qualified Code(s): N40.1 - Benign prostatic hyperplasia with lower urinary tract symptoms; R35.0 - Frequency of micturition Code(s): N40.0 - Benign prostatic hyperplasia without lower urinary tract symptoms Status: Acute DS: Summary Hospital Course Reason for hospitalization: Urinary Retention/Bladder Stone Hospital Course: See note below. Time Spent with Patient Time attestation: The patient had a TURP, Cystoscope and bladder stone removal on 07/31/[address] Diggs. He tolerated the procedure well, was transferred to recovery in stable condition and to the floor for further observation. He did well overnight the first night on CBI, it was weaned to off as the urine was clear, but several hours later it became bloody again. He then had his CBI turned back on and it was again weaned to off over night and into this morning. His urine is light pink off CBI. He is tolerating his diet, activity and pain well. He will be discharged home today, to resume all home meds including antibiotics Cipro that he had at home,which we gave him last week, pain meds as needed and Colace to reduce straining with BM's. He can resume a regular diet, activity as tolerated, no lifting over 20lbs with the hreman in place. He will follow up on Friday with our office to have his herman removed. Exam Resp: Effort & Inspection: normal respiratory effort Cardio: Rate: regular rate GI: GI Palp: Yes Soft to palpation and No Tenderness to palpation present (GI) : General: Yes no CVA tenderness Urinary Catheter: Urinary Catheter: patent and draining, urine clear and urine pink Extrem: General: no edema DS: Data Data Completed and Pending Pending studies at discharge: Pending at discharge 07/31/21 14:12 Surgical [PTH] Routine Discharge Plan Discharge Attending physician on discharge: Suresh Diggs Discharging Clinician: Mari Bucio Anticipated Discharge Date/Time: 08/02/21 12:30 Patient Disposition: Home, Self-Care Activity: may shower Diet: as tolerated Discharge Instructions: Follow up in the office on Friday to have your herman removed, August 06 at 11am, with aMri STARR. Call the office if you develop dark bloody urine with clots, fever, chills, nausea, vomiting or severe abdominal pain. You may irrigate your herman as needed if it isn't running well or becomes slightly bloody. Expect more blood with activity and straining to have a BM. Finish 6 days of Cipro at home, pain medications and stool softeners as needed. Patient Instructions: Antibiotic Form Stand Alone Forms: General Discharge Information Follow-up/Referrals: Suresh Diggs MD [Physician] - Discharge Medications: New docusate sodium 100 mg Capsule 100 mg PO Q12HR Qty: 10 RF: 0 hydrocodone-acetaminophen 5-325 mg tablet 1 tablet PO Q4H PRN (Reason: pain) Qty: 10 RF: 0 Continued finasteride 5 mg tablet 5 mg PO DAILY RF: 0 tamsulosin 0.4 mg capsule 0.4 mg PO HS Qty: 30 RF: 0 Date of admission: 08/01/21 15:56 Primary Care Provider: Bruce,Nakul Admitting Provider: Suresh Diggs Attending physician on admission: Suresh Diggs Condition: Improved
== END 2021-08-02 12:22 | disposition home or self-care (01) ==
LOC: ANHSURGERY 16:01 → ANH2MED 16:01
PROVIDERS: Admitting Provider Urology; PCP Student in an Organized Health Care Education/Training Program; Visit Provider Urology
PROC: 0VT08ZZ Resection of Prostate, Via Natural or Artificial Opening Endoscopic (ICD-10-PCS; CPT 52601; principal; 2021-07-31 14:00)
PROC: (CPT 52352; 2021-07-31 14:00)
PROC: (CPT 52601; 2021-07-31 14:00)
DX: N21.0 Calculus in bladder (principal); N40.1 Benign prostatic hyperplasia with lower urinary tract symptoms; R31.0 Gross hematuria
CPT/HCPCS: 52601; 36415; 80048; 82365; 85014; 85018; 87077; 87086; 87088; 87186; 88300; 88305; A9270; C1758; C1769; G0378; J0690; J1100; J2405; J2704; J3010; J7120

== ENCOUNTER → 2022-01-10 10:55 | Outpatient (CLI) | payer OTHER, SELFPAY ==
--- NOTE | ~2022-01-10 | XR_ITS ---
EXAMINATION: XR abdomen/kub 1V EXAM DATE: 01/10/2022 11:53 INDICATION: Microscopic hematuria . TECHNIQUE: Frontal projection(s) of the abdomen for interpretation. Comparison is made to prior exami nation from 07/03/2021. FINDINGS: 2 right calyceal stones measuring about 8 mm identified, indicated. These were present on p rior study. The previously seen left ureteral stent has been removed. Pelvic calcifications appear un changed. 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 IMPRESSION: Right nephrolithiasis. Reviewed, dictated and finalized at location G. ANALYST IMPRESSION: Right nephrolithiasis.
--- NOTE | ~2022-01-10 | CT_ITS ---
EXAMINATION: CT abdomen pelvis wo/w con DATE: 01/10/2022 12:18 INDICATION: Microscopic hematuria TECHNIQUE: Computed tomography (CT) of the abdomen and pelvis was performed without and subsequently with 130 cc Omnipaque 350 intravenous contrast. Automated exposure control and iterative reconstructi on technique were employed. Exam dose: 2497.87 mGy-cm total exam DLP. COMPARISON: 06/14/2021 CT abdomen pelvis FINDINGS: There is discoid atelectasis and/or scarring in the lower lung zones, including middle lobe , left lower lobe and more prominently the lingula. No pulmonary consolidation. Normal heart size. No pericardial or pleural effusion. The liver, gallbladder, bile ducts, spleen, pancreas, pancreatic duct, and adrenal glands are unremar kable. No renal mass lesion or filling defect of the renal collecting systems is evident. Approximately 6.5 mm and 8mm upper pole nonobstructing right renal stones and pinpoint nonobstructing lower pole right renal calculus. No other urinary tract calculus or hydroureteronephrosis. There is a posterolateral approximately 2.2 cm right urinary bladder diverticulum. Smaller left-sided urinary bladder diverticula. There is moderate diffuse thickening of the urinary bladder wall. There is prostate enlargement. Small sliding hiatal hernia. There are numerous diverticula of the left and to a lesser extent right colon; no CT evidence of diverticulitis. No bowel obstruction, bowel wall thickening, pneumatosis or intraperitoneal free air. Bilateral fat-containing inguinal hernias. There is atherosclerotic calcification of the abdominal aorta but no aneurysm. No intraperitoneal or retroperitoneal or pelvic mass lesion or adenopathy or ascites. There is chronic patchy increased density of the mesenteric fat. Diffuse idiopathic skeletal hyperostosis of the thoracic spine. No suspicious osteolytic or osteoblas tic lesions. IMPRESSION: Right nephrolithiasis; no ureteral calculus or hydroureteronephrosis Bladder diverticula Prostate enlargement Small sliding hiatal hernia Diverticulosis of the colon; no evidence of diverticulitis Chronic increased density of the mesenteric fat Reviewed, dictated and finalized at [facility]. Reviewed, dictated and finalized at [facility]. NSED PSYCHOLOGIST IMPRESSION: Right nephrolithiasis; no ureteral calculus or hydroureteronephros is Bladder diverticula Prostate enlargement Small sliding hiatal hernia Diverticulosis of the colon; no evidence of diverticulitis Chronic increased density of the mesenteric fat
[2022-01-10 11:22] LABS: Estimated Glomerular Filt Rate > 60
== END ==
PROVIDERS: PCP Student in an Organized Health Care Education/Training Program; Visit Provider Nurse Practitioner Adult Health
DX: R31.29 Other microscopic hematuria (principal); N20.0 Calculus of kidney; N32.3 Diverticulum of bladder; N40.0 Benign prostatic hyperplasia without lower urinary tract symptoms; K44.9 Diaphragmatic hernia without obstruction or gangrene; K57.90 Diverticulosis of intestine, part unspecified, without perforation or abscess without bleeding
CPT/HCPCS: 74018; 74178; Q9967

== ENCOUNTER 2022-05-06 11:54 | Outpatient (CLI) | payer OTHER, SELFPAY ==
--- NOTE | ~2022-05-06 | US_ITS ---
EXAMINATION: US venous doppler LE RT DATE: 05/06/2022 13:23 INDICATION: Right lower limb swelling and tenderness TECHNIQUE: Grayscale ultrasound images without and with compression and Doppler ultrasound images of the right lower extremity veins were obtained. COMPARISON: None. FINDINGS: The visualized portions of right common femoral vein, profunda (deep) femoral vein, femoral vein, pop liteal vein, peroneal trunk, posterior tibial veins, peroneal veins, gastrocnemius vein, lesser saphe nous vein and greater saphenous vein outflow are patent. There is mild venous reflux of 2.0 seconds i n maximal duration at the proximal right greater saphenous vein. Subcutaneous varicosities at the rig ht thigh. Subcutaneous edema at the right calf. IMPRESSION: 1. No deep venous thrombosis in the right lower limb. Reviewed, dictated and finalized at [facility].
== END 2022-05-06 11:55 | disposition home or self-care (01) ==
PROVIDERS: PCP Student in an Organized Health Care Education/Training Program; Visit Provider Student in an Organized Health Care Education/Training Program
DX: M79.89 Other specified soft tissue disorders (principal)
CPT/HCPCS: 93971

== ENCOUNTER → 2023-04-16 13:07 | Outpatient (CLI) | payer OTHER, SELFPAY ==
--- NOTE | ~2023-04-16 | XR_ITS ---
Supine and upright views of the abdomen Clinical history: Right renal stone COMPARISON: 01/10/2022 Findings: Bowel gas pattern is nonspecific. No evidence for obstruction or free air. Presumed right u pper pole renal stones are unchanged. Osseous structures are intact. Impression: Stable presumed right upper pole renal stones. Reviewed, dictated and finalized at [facility]. Impression: Stable presumed right upper pole renal stones.
== END ==
PROVIDERS: PCP Student in an Organized Health Care Education/Training Program; Visit Provider Nurse Practitioner Adult Health
DX: N20.0 Calculus of kidney (principal)
CPT/HCPCS: 74018

== ENCOUNTER 2023-10-22 10:00 | Outpatient (RCR) | payer OTHER, SELFPAY ==
--- NOTE | 2023-09-17 15:37 | PTOPEVAL1 ---
Assessment and note entered by Jeffy Lala Evaluation Information Assessment Status Evaluation Diagnosis left knee pain Onset 05/18/23 Subjective Information Pt. reports that he has been dealing with on/off left knee pain for about 4 months. He describes pain in the medial portion of the left knee and into the knee cap. Occasional pain described in the back of the left knee. He describes most pain with walking and twisting the left knee. He reports that pain is worst in the morning. He states that pain is constant. He reports that he has been using a cane for the past 2-3 days. He reports that pain increases with long periods of walking. He states that when he sits with his knee bent that his pain will increase. He reports that he has been trying to remain active despite the pain. He reports that his goal is to decrease his left knee pain. Reported Pain Level Pain Score 4: Self Report Assessment PT Clinical Summary Pt. is a 78 year old male who enters the clinic with left knee pain. Xray reveals medial compartment OA, and special testing may suggest meniscal pathology. At this time pt. presents with impaired gait, impaired l.e. strength, impaired left knee flexion ROM and pain. Continued skilled PT is indicated in order to improve these areas to allow the pt. to be able to complete all IADL's with improved comfort and safety. Plan of Care Interventions Electrical Stimulation,Gait Training,Hot Pack/Cold Pack,Manual Therapy,Neuro Re-education,Patient/ Caregiver Educati,Therapeutic Activities, Therapeutic Exercise PT Services Indicated Yes Treatment Frequency and 2x/week x 10 visits Duration These treatments will address the objective and functional deficits as defined above. The patient will be advanced safely and appropriately in order for the patient to progress towards his/her prior level of function. Additional exercises will be introduced and as well as a comprehensive home exercise program upon discharge, if needed, ?to ensure carryover of functional gains achieved in the clinic. This treatment plan has been reviewed and agreement upon by the patient.
--- NOTE | 2023-09-17 15:46 | OPREHPOC ---
Outpatient Therapy Plan of Care This is a Multidisciplinary Plan of Care that may contain components documented by all disciplines (PT, OT, and ST.) PT Problem 1 PT Problem #1 Knowledge Deficit PT Goal 1 Goal Pt. will be independent with a HEP addressing strength and mobility at the left l.e. Target Visit 2 PT Problem 2 PT Problem #2 Pain PT Goal 1 Goal Pt. will reduce pain to 1/10 at worst with all standing activities. Target Visit 10 PT Problem 3 PT Problem #3 Impaired Range of Motion PT Goal 1 Goal Pt. will demonstrate 125 degrees left knee flexion to assist with improved ability to complete functional squatting activities. Target Visit 10 PT Problem 4 PT Problem #4 Impaired Gait PT Goal 1 Goal Pt. will ambulates over level surface with equal right and left stance time without use of an AD for distance of 500' Target Visit 10 PT Problem 5 PT Problem #5 Impaired Strength PT Goal 1 Goal Pt. will increase left knee flexion and bilateral hip abduction strength to 5/5 Target Visit 10
--- OUTSIDE RECORDS SUMMARY | 2023-09-29 15:12 | XMS_ITS | Referral Summary ---
Author Name Unknown Organization [facility] Address [address] [place] [id number] [place] [address] Care Team Providers Care Brickmason Apprentice Name Role Phone Nakul Barrera DO Primary Care Provider + Reason for Referral * Physical Medicine (Routine) - Authorized Specialty Diagnoses / Procedures Referred By Navneet raphael Referred To Contact PHYSICAL THERAPY Diagnoses Chronic pain of left knee Procedures OFFICE/OUTPATIENT NEW LOW MDM 30-44 MINUTES OFFICE/OUTPT VISIT,NEW,LEVL IV OFFICE/OUTPT VISIT,NEW,LEVL V OFFICE/OUTPT VISIT,EST,LEVL III OFFICE/OUTPT VISIT,EST,LEVL IV OFFICE/OUTPT VISIT,EST,LEVL V Nakul Barrera DO [id number] [place] [address] Referral ID Status Reason Start Date Expiration Date Visits Requested Visits Authorized [id number] Authorized Physical Therapy 09/15/2024 16 16 Scheduling Instructions [facility] Reason for Visit * Reason Comments Follow Up Atherosclerosis of a oralia. Patient is still having knee pain as well. Encounter Details
--- NOTE | 2023-10-22 10:44 | PTOPDC ---
Assessment and note entered by Nancy Antonio, PT Discharge Information Assessment Status Discharge Diagnosis left knee pain Onset 05/18/23 Subjective Information knee is much better; have been without the cane about 4-5 days; no longer have a fear of falling- knee does not feel like it is going to give out; doing all the exercises at home; want to finish up therapy and do exercises at home; Reported Pain Level Pain Score Self Report Additional Pain Score Comments pain range in past week 0-2/10; pain increases with walking and putting pressure on leg-- hurts behind knee; ease pain with sitting and resting; is not using heat/ice or meds; Assessment PT Clinical Summary Sea has received 8 PT sessions. He has improved in all areas; pain decreased from 4-5/10 to 0-2/10; no longer using the cane to walk; active knee flexion increased from 113' to 125'; gait pattern is good- without limp; increase strength of L hip and knee; Tinetti balance score from 22 to 28/28; most tenderness with palpation over distal medial hamstring- above popliteal crease; education completed for HEP, The goals were partially met. Discharge PT services,continue with HEP. Plan of Care PT Services Indicated No
== END 2023-10-22 11:39 | disposition home or self-care (01) ==
LOC: ANHPT 10:00
PROVIDERS: PCP Student in an Organized Health Care Education/Training Program; Visit Provider Student in an Organized Health Care Education/Training Program
DX: M25.562 Pain in left knee (principal); G89.29 Other chronic pain
CPT/HCPCS: 97014; 97110; 97112; 97161; 97530; G0283

== ENCOUNTER 2023-11-04 09:55 | Outpatient (CLI) | payer OTHER, SELFPAY | END 2023-11-04 09:56 | disposition home or self-care (01) | LOC: ANHAUDIO 09:56 | PROVIDERS: PCP Student in an Organized Health Care Education/Training Program; Visit Provider Student in an Organized Health Care Education/Training Program | DX: H90.3 Sensorineural hearing loss, bilateral (principal) | CPT/HCPCS: 92557; 92567 ==

== ENCOUNTER 2023-12-05 11:36 | Emergency (ER) | payer OTHER, SELFPAY ==
[2023-12-05] VITALS (15 sets, daily range): BP systolic 146–165; BP diastolic 74–85; PULSE 70–98; RESP 16–20; TEMP 36.4; O2SAT 93–97
--- NOTE | ~2023-12-05 | CT_ITS ---
EXAMINATION: CT abdomen pelvis w con DATE: 12/05/2023 13:08 INDICATION: Left upper and lower quadrant tenderness, abdominal distention TECHNIQUE: Computed tomography (CT) of the abdomen and pelvis was performed with 100 CC Omnipaque 350 intravenous contrast. Automated exposure control and iterative reconstruction technique were employe d. Exam dose: 1286.44 mGy-cm total exam DLP. COMPARISON: 04/12/2023 KUB 2V 01/10/2022 CT abdomen pelvis FINDINGS: Chronic mild discoid scarring at the medial segment of the middle lobe and the base of the lingula. No infiltrate or consolidation at the lung bases. Heart size is within normal range. No pericardial or pleural effusion. Small sliding hiatal hernia. The liver, gallbladder, bile ducts, pancreas, pancreatic duct are unremarkable. Multiple splenic calc ified granulomas. No splenomegaly. Normal morphology of the adrenal glands. Mild irregularity of both renal outlines no renal space occupying mass lesion is detected. Approximately 5 x 8 mm nonobstructing upper pole right renal calculus and a 2.6 mm lower pole nonobst ructing right renal calculus. 4.7 x 6.7 mm distal right ureteral calculus without hydroureteronephrosis. No other urinary tract calculus or hydroureteronephrosis is noted. There is prostate enlargement, with irregular impression upon the base of the urinary bladder. Prosta te or urothelial bladder malignancy are not excluded. Approximately 2.4 x 2.5 cm posterolateral right urinary bladder diverticulum (Hutch diverticulum). Approximately 9 mm posterolateral left urinary bladder diverticulum situated approximately 2.3 cm ant erior to the left ureterovesical junction. Smaller urinary bladder diverticulum is suggested in simil ar position on the right. Bilateral fat-containing inguinal hernias, larger on the left. There is up to approximately 3.4 cm dilatation and thickening of the wall of the mid small bowel. No focal transition zone is identified distally. The distal small bowel and terminal ileum is of normal caliber, without wall thickening. There are numerous diverticula of the sigmoid and descending colon; no CT evidence of diverticulitis. Normal appendix. No bowel obstruction, bowel wall thickening, pneumatosis or intraperitoneal free ai r. Diffuse idiopathic skeletal hyperostosis of the thoracic spine. Grade 1 anterolisthesis at L4-5 due to degenerative changes apophyseal joints. No suspicious osteolyt ic or osteoblastic lesions are noted. IMPRESSION: Nonspecific mild dilatation and thickening of the wall of the mid small bowel, without f ocal transition zone. 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 Additional small diverticulum of each side of the ur inary bladder. Bilateral fat-containing inguinal hernias Small sliding hiatal hernia Reviewed, dictated and finalized at [facility]. Reviewed, dictated and finalized at [facility]. N OPERATOR IMPRESSION: Nonspecific mild dilatation and thickening of the wall of the mid small bowel, without focal transition zone. Consider inflammatory or infectious process Diverticulosis of the left colon; no CT evidence of diverticulitis Chronic increased density of the mesenteric fat, present on January 10, 2022 Normal appendix 4.7 x 6.7 mm distal right ureteral calculus without hydroureteronephrosis Nonobst
[2023-12-05 12:20] LABS: Basophils Percent Auto 0.5 % (0.2-1.2); Eosinophils Absolute Auto 0.2 K/mm3 (0-0.3); Eosinophils Percent Auto 2.1 % (0-4.4); Hematocrit 46.7 % (42.0-52.0); Hemoglobin 15.9 g/dL (14.0-18.0); Immature Granulocyte Absolute 0.03 K/mm3 (0.00-0.031); Immature Granulocyte Percent A 0.4 % (0-0.5); Lymphocytes Absolute Auto 1.81 K/mm3 (0.9-3.2); Lymphocytes Percent Auto 22.4 % (18.3-44.2); Mean Corpuscular Volume 85.1 fl (80-100); Mean Platelet Volume 10.4 fl (7.4-10.4); Monocytes Absolute Auto 0.6 K/mm3 (0.1-0.6); Monocytes Percent Auto 6.9 % (2.6-8.5); Neutrophils Absolute Auto 5.5 K/mm3 (1.3-6.7); Neutrophils Percent Auto 67.7 % (45.5-73.1); Platelet Count Result 241 k/mm3 (150-375); Red Blood Count 5.49 M/mm3 (4.6-6.20); Red Cell Distribution Width 12.7 % (11.5-14.5); White Blood Count 8.1 K/mm3 (4.5-10.0)
[2023-12-05 12:25] LABS: Alanine Aminotransferase 77 U/L (6-50); Albumin Level 4.3 g/dL (3.5-5.1); Alkaline Phosphatase 58 U/L (38-126); Anion Gap 12 mmol/L (8-16); Aspartate Amino Transferase 54 U/L (17-59); Bilirubin,Total 1.9 mg/dL (0.2-1.3); Blood Urea Nitrogen 20 mg/dL (9-20); Calcium 8.9 mg/dL (8.4-10.2); Carbon Dioxide 23 mmol/L (22-30); Chloride 102 mmol/L (98-107); Estimated CRCL calculation 64 ml/min; Estimated Glomerular Filt Rate > 60; Glucose 121 mg/dL (65-110); Lipase 44 U/L (23-300); Potassium 3.9 mmol/L (3.4-5.0); Sodium 137 mmol/L (137-145)
--- NOTE | 2023-12-05 12:42 | ED.ABDPAIN ---
HPI - Abdominal Pain General Chief Complaint: Abdominal Pain Stated Complaint: abd pain Time Seen by Provider: 12/05/23 11:58 History of Present Illness HPI narrative: Patient is a 78-year-old male with a history of hypertension presenting with abdominal pain. Patient states that he has been having upper and lower abdominal pain for the last 4-5 days. States that he has been having a lot of belching and indigestion. He took some Pepto which temporarily helped. States that he has been having diarrhea as well as decreased appetite. Abdomen feels more bloated than normal. History of prior hernia repair. No fevers, dysuria or hematuria, vomiting. No further complaints. Related Data Home Medications Medication Instructions Recorded Confirmed finasteride 5 mg tablet 5 mg PO DAILY 06/15/21 07/31/21 Allergies Allergy/AdvReac Type Severity Reaction Status Date / Time Penicillins Allergy Unknown Rash Verified 12/05/23 11:41 Review of Systems Review of Systems: All systems reviewed & are unremarkable except as noted in HPI and below PMFSH Past Medical History Medical History Bladder stone Screening for abdominal aortic aneurysm Screening PSA (prostate specific antigen) Skin lesions Vitamin D deficiency disease Surgical History Surgical History H/O hernia repair Hx of cystoscopy Social History Social History Social History: Patient lives at home with his Carina that he has been to for 56 years with no pets. 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 EYES: PERRLA and EOMI. ENT: grossly unremarkable NECK: Supple. CHEST: Clear to auscultation. No respiratory distress. HEART: Regular rate and rhythm ABDOMEN: Soft, distended, tender in the left upper and left lower quadrants without guarding or rebound, healed midline incision lower abdomen EXTREMITIES: Normal range of motion. SKIN: Warm, dry, no rash. NEURO: No focal deficits. Alert and oriented x3. PSYCH: Normal mood and affect. Course Vital Signs Vital signs: Vital Signs Temperature 97.6 F 12/05/23 11:37 Pulse Rate 94 12/05/23 11:37 Respiratory Rate 20 12/05/23 11:37 Blood Pressure 165/85 H 12/05/23 11:37 Pulse Oximetry 97 12/05/23 11:37 Oxygen Delivery Room Air 12/05/23 11:37 Temperature 97.6 F 12/05/23 11:37 Pulse Rate 73 12/05/23 17:43 Respiratory Rate 17 12/05/23 17:43 Blood Pressure 146/76 H 12/05/23 17:43 Pulse Oximetry 97 12/05/23 17:43 Oxygen Delivery Room Air 12/05/23 11:37 MDM - Abdominal Pain MDM Narrative Medical decision making narrative: 78-year-old male presenting with abdominal pain and distension. Vital stable. Exam remarkable for the above. Patient declines pain medication at this time. Blood work with slightly elevated T bili. Otherwise no acute abnormalities.
[2023-12-05] MEDS: SODIUM CHLORIDE 0.9% IV 1,000 ML 999 ML IV CONT (13:14)
[2023-12-05 15:18] LABS: Appearance Urine Clear (Clear); Bilirubin Urine Negative (Negative); Blood Urine Negative (Negative); Color Urine Yellow (Yellow); Glucose Urine UA Negative (Negative); Ketones Urine 1+ mg/dL (Negative); Leukocyte Esterase Ur Negative LEU/UL (Negative); Nitrate Urine Negative (Negative); Protein Urine Negative (Negative); Urobilinogen Urine 0.2 mg/dL (<2.0)
[2023-12-05 15:27] LABS: Specific Grav Ur 1.049 (1.001-1.035)
[2023-12-05 15:28] LABS: Add Urine Microscopic? NO
[2023-12-05] MEDS: metroNIDAZOLE 500 MG TABLET PO (17:42)
[2023-12-05] MEDS: levoFLOXacin 500 MG TABLET 750 MG PO (17:42)
== END 2023-12-05 17:49 | disposition home or self-care (01) ==
PROVIDERS: Emergency Medicine; Emergency Provider Emergency Medicine; PCP Student in an Organized Health Care Education/Training Program
DX: N20.2 Calculus of kidney with calculus of ureter (principal); R19.7 Diarrhea, unspecified; E55.9 Vitamin D deficiency, unspecified; Z87.891 Personal history of nicotine dependence; K57.90 Diverticulosis of intestine, part unspecified, without perforation or abscess without bleeding; N40.0 Benign prostatic hyperplasia without lower urinary tract symptoms; N32.3 Diverticulum of bladder; K44.9 Diaphragmatic hernia without obstruction or gangrene; K40.20 Bilateral inguinal hernia, without obstruction or gangrene, not specified as recurrent
CPT/HCPCS: 36415; 74177; 80053; 81003; 83605; 83690; 85025; 96360; 99284; A9270; J7030; Q9967

== ENCOUNTER → 2024-01-06 15:16 | Outpatient (CLI) | payer OTHER, SELFPAY ==
--- NOTE | ~2024-01-06 | XR_ITS ---
Supine and upright views of the abdomen Clinical history: Right renal stone COMPARISON: 04/16/2023 Findings: Bowel gas pattern is nonspecific. No evidence for obstruction or free air. No abnormal mass lesion or calcification is seen. Osseous structures are intact. Impression: No significant abnormality is seen. Reviewed, dictated and finalized at [facility]. R BANDER HAND Impression: No significant abnormality is seen.
== END ==
PROVIDERS: PCP Student in an Organized Health Care Education/Training Program; Visit Provider Physician Assistant
DX: N20.0 Calculus of kidney (principal)
CPT/HCPCS: 74018

== ENCOUNTER 2024-11-26 12:02 | Emergency (ER) | payer OTHER, SELFPAY ==
--- NOTE | ~2024-11-26 | CT_ITS ---
CT abdomen pelvis w con Ordering provider: Agnieszka Trujillo PA-C History: 79 years Male with . constipation, abd pain . Comparison: None. Technique: CT abdomen and pelvis with IV and without oral contrast. Automated exposure control and it erative reconstruction technique were employed. The dose-length product was 1285.45 mGy-cm. 100 mL Om nipaque 350 was given IV. Findings: VISUALIZED LOWER CHEST: Normal. UPPER ABDOMINAL ORGANS: Liver: Normal. Gallbladder: Normal. Spleen: Normal. Benign calcifications. Stomach/duodenum: Small sliding hiatus hernia. Pancreas: Normal. Adrenals: Normal. Kidneys: Right ureterovesical stone is seen measuring 1.1 cm. No dilatation of the right ureter. No d efinite hydronephrotic changes. Stone in the right kidney upper pole measuring 8.5 mm. Tiny stone also seen in the right kidney upper and lower pole. PELVIC ORGANS: The bladder shows slightly thickened wall which may indicate cystitis. Diverticulum is seen in the right and left posterior wall of the bladder measuring 2.6 cm on the right and 1.1 cm on the left. Slightly enlarged prostate. BOWEL AND MESENTERY: Colon: Minimal fat stranding around the sigmoid colon which may indicate diverticulitis. .. Normal ap pendix. Small Bowel: Normal. No obstruction. Peritoneum/mesentery: No free air or free fluid. No mesenteric lymphadenopathy. Panniculitis is seen in the upper abdomen. RETROPERITONEUM: Mild atheromatous disease of the abdominal aorta. Slight narrowing of the origin of the celiac artery. No retroperitoneal lymphadenopathy. MUSCULOSKELETAL: Superficial soft tissues: Bilateral fat containing inguinal hernias larger on the left side. Small an terior wall fat containing and fluid containing hernia. Otherwise, The superficial soft tissues are n ormal. Bones: Age appropriate degenerative changes of the spine. Possible old fractures in the right 11th an d 12th ribs. Left sacroiliitis. IMPRESSION: 1. Highly suggestive diverticulitis in the sigmoid:. 2. Stone in the right ureterovesical junction. 3. Multiple stones in the right kidney. 4. Diverticula of the urinary bladder. 5. Anterior abdominal wall hernia with fat and fluid content. Bilateral inguinal fat containing hayley ias. 6. Panniculitis in the upper abdomen. 7. Small sliding hiatus hernia. Reviewed, dictated and finalized at location A. KEEPER IMPRESSION: 1. Highly suggestive diverticulitis in the sigmoid:. 2. Stone in the right ureterovesical junction. 3. Multiple stones in the right kidney. 4. Diverticula of the urinary bladder. 5. Anterior abdominal wall hernia with fat and fluid content. Bilateral inguin al fat containing hernias. 6. Panniculitis in the upper abdomen. 7. Small sliding hiatus hernia.
[2024-11-26 12:14] VITALS: BP 168/71; PULSE 82; RESP 18; TEMP 36.6; O2SAT 97
[2024-11-26 15:04] VITALS: BP 143/64; PULSE 75; TEMP 36.9; O2SAT 96
--- NOTE | 2024-11-26 15:14 | ED.ABDPAIN ---
HPI - Abdominal Pain General Chief Complaint: Abdominal Pain <Agnieszka Trujillo PA-C - Last Filed: 11/26/24 15:20> Stated Complaint: umbilical hernia, abd. pain, consipation <Agnieszka Trujillo PA-C - Last Filed: 11/26/24 15:20> Time Seen by Provider: 11/26/24 20:04 <Agnieszka Trujillo PA-C - Last Filed: 11/26/24 15:20> Focused HPI: 79 y/o M presents to the ED for bulging hernias. Pt states over the past week he has noticed his umbilical and ventral hernia has become larger. States when he lays flat he is able to reduce them. States on Friday he had an episode of diarrhea and then had a small bowel movement on Friday but has not been able to pass stool since other than small ?flakes?. He attempted to contact Dr. Coon's office but unfortunately cannot be seen until December 07. He states he has been passing gas but notices mucus when wiping. He is reporting some pain to the right lower quadrant. He admits to a history of prior ventral hernia repair several years ago but otherwise no abdominal surgeries. Dysuria or hematuria. Denies fevers. GENERAL: Well-appearing, well-nourished, and in no acute distress. HEAD: Normocephalic, atraumatic. CHEST: Clear to auscultation. ?No respiratory distress. ABD: ventral hernia that is nontender to palpation but not easily reduced in triage bay, no overlying skin changes. Umbilical hernia that is easily reduced with no tenderness or overlying skin changes. Tenderness to the right lower quadrant on palpation. HEART: Regular rate and rhythm.? NEURO: ?Alert and oriented x3. Patient screened in triage and initial orders placed.? ?Additional care and disposition to be based upon?diagnostic testing and treatment. <Agnieszka Trujillo PA-C - Last Filed: 11/26/24 15:20> History of Present Illness HPI narrative: Patient 79-year-old gentleman presents emergency department with chief complaint of umbilical hernia and abdominal pain and mucousy diarrhea. The patient reports he saw his primary care provider who wrote a prescription for Levaquin and Flagyl the patient reports he was unable to get it filled until today the patient reports that he was concerned that his hernia may be incarcerated the patient reports that is reducible reports that he had a temperature of 99? patient reports that he is scheduled to see Dr. Shukla on the . <Darin Castillo MD - Last Filed: 11/26/24 20:27> Related Data Home Medications: Home Medications ?Medication ?Instructions ?Recorded ?Confirmed ?Last Taken ?Type carvedilol 3.125 mg tablet 3.125 mg PO Q12H 12/24/23 12/24/23 Unknown History omeprazole 20 mg capsule,delayed 20 mg PO DAILY 12/24/23 12/24/23 Unknown History release rosuvastatin 20 mg tablet 20 mg PO DAILY 12/24/23 12/24/23 Unknown History trimethoprim 100 mg tablet 100 mg PO DAILY 12/24/23 12/24/23 Unknown History <Agnieszka Trujillo PA-C - Last Filed: 11/26/24 15:20> Allergies/Adverse Reactions: Allergies Allergy/AdvReac Type Severity Reaction Status Date / Time Penicillins Allergy Unknown Rash Verified 11/26/24 12:03 <Agnieszka Trujillo PA-C - Last Filed: 11/26/24 15:20> Review of Systems Review of Systems: A 10 system review of systems was completed on the patient and is negative except for what is stated in the HPI. Nursing and ancillary documentation was reviewed. <Darin Castillo MD - Last Filed: 11/26/24 20:27> PMFSH Past Medical History Medical History: Medical History Bladder stone Screening for abdominal aortic aneurysm Skin lesions Vitamin D deficiency disease Screening PSA (prostate specific antigen) <Agnieszka Trujillo PA-C - Last Filed: 11/26/24 15:20> Surgical History Surgical History: Surgical History H/O hernia repair Hx of cystoscopy <Agnieszka Trujillo PA-C - Last Filed: 11/26/24 15:20> Social History Social History: Social History Social History: Patient lives at home with his Carina that he has been to for 56 years with no pets. 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 HEAD: Normocephalic, atraumatic. EYES: PERRLA and EOMI. ENT: Nares clear, no rhinorrhea or epistaxis. Mucous membranes moist. NECK: Supple. CHEST: Clear to auscultation. No respiratory distress. HEART: Regular rate and rhythm. No murmur heard. Normal peripheral pulses. ABDOMEN: Soft, nontender, nondistended, normal active bowel sounds. There is a umbilical hernia that is reducible on exam EXTREMITIES: Normal range of motion. No edema. SKIN: Warm, dry, no rash. NEURO: No focal deficits. Alert and oriented x3. PSYCH: Normal mood and affect. <Darin Castillo MD - Last Filed: 11/26/24 20:27> Course Vital Signs Vital signs: Vital Signs Temperature 36.6 C 11/26/24 12:14 Pulse Rate 82 11/26/24 12:14 Respiratory Rate 18 11/26/24 12:14 Blood Pressure 168/71 H 11/26/24 12:14 Pulse Oximetry 97 11/26/24 12:14 Temperature 36.5 C 11/26/24 19:22 Pulse Rate 73 11/26/24 19:22 Respiratory Rate 15 11/26/24 19:22 Blood Pressure 159/84 H 11/26/24 19:22 Pulse Oximetry 98 11/26/24 19:22 <Agnieszka Trujillo PA-C - Last Filed: 11/26/24 15:20> Vital Signs Temperature 36.6 C 11/26/24 12:14 Pulse Rate 82 11/26/24 12:14 Respiratory Rate 18 11/26/24 12:14 Blood Pressure 168/71 H 11/26/24 12:14 Pulse Oximetry 97 11/26/24 12:14 Temperature 36.5 C 11/26/24 19:22 Pulse Rate 73 11/26/24 19:22 Respiratory Rate 15 11/26/24 19:22 Blood Pressure 159/84 H 11/26/24 19:22 Pulse Oximetry 98 11/26/24 19:22 <Darin Castillo MD - Last Filed: 11/26/24 20:27> MDM - Abdominal Pain MDM Narrative Medical decision making narrative: Differential diagnosis includes incarcerated hernia, reducible hernia, diverticulitis, colitis, ureterolithiasis Urinalysis was within normal limits CBC showed a white count of 5.4 electrolytes are within normal limits CO2 was 25 bilirubin was 1.4 other liver enzymes were normal lipase was normal at 42 CT scan of the abdomen pelvis showed . Highly suggestive diverticulitis in the sigmoid:. 2. Stone in the right ureterovesical junction. 3. Multiple stones in the right kidney. 4. Diverticula of the urinary bladder. 5. Anterior abdominal wall hernia with fat and fluid content. Bilateral inguinal fat containing hernias. 6. Panniculitis in the upper abdomen. 7. Small sliding hiatus hernia. The patient received a dose of Levaquin and Flagyl it was discussed with the patient admission versus outpatient follow-up patient reports that he has a urologist that he sees he has an appointment with surgery and reports that his has dementia patient reports that he would like to try outpatient management the patient was instructed to return precautions <Darin Castillo MD - Last Filed: 11/26/24 20:27> Lab Data Result diagrams: 11/26/24 17:18 11/26/24 17:18 <Agnieszka Trujillo PA-C - Last Filed: 11/26/24 15:20> Labs: Lab Results 11/26/24 Range/Units 17:18 WBC 5.4 (4.5-10.0) K/mm3 RBC 4.76 (4.6-6.20) M/mm3 Hgb 13.5 L (14.0-18.0) g/dL Hct 40.1 L (42.0-52.0) % MCV 84.2 (80-100) fl MCH 28.4 (26-34) pg MCHC 33.7 (32-36) g/dl RDW 13.2 (11.5-14.5) % Plt Count 174 (150-375) k/mm3 MPV 10.0 (7.4-10.4) fl Immature Gran % (Auto) 0.2 (0-0.5) % Neut % (Auto) 66.6 (45.5-73.1) % Lymph % (Auto) 24.2 (18.3-44.2) % [place] % (Auto) 7.7 (2.6-8.5) % Eos % (Auto) 0.6 (0-4.4) % Baso % (Auto) 0.7 (0.2-1.2) % Lymph # (Auto) 1.31 (0.9-3.2) K/mm3 [place] # (Auto) 0.4 (0.1-0.6) K/mm3 Eos # (Auto) 0.0 (0-0.3) K/mm3 Baso # (Auto) 0.0 (0.0-0.1) K/mm3 Abs Immat Gran (auto) 0.01 (0.00-0.031) K/mm3 Absolute Neuts (auto) 3.6 (1.3-6.7) K/mm3 Absolute Nucleated RBC 0.000 (0.0-0.012) K/mm3 Nucleated RBC % 0.0 (0.0-0.2) % Sodium 139 (137-145) mmol/L Potassium 3.9 (3.4-5.0) mmol/L Chloride 108 H (98-107) mmol/L Carbon Dioxide 25 (22-30) mmol/L Anion Gap 6 (4-12) mmol/L BUN 18 (9-20) mg/dL Creatinine 1.00 (0.7-1.3) mg/dL Estim Creat Clear Calc 69 ml/min Estimated GFR > 60 (59 - ) Glucose 109 (65-110) mg/dL Calcium 8.7 (8.4-10.2) mg/dL Total Bilirubin 1.4 H (0.2-1.3) mg/dL AST 19 (17-59) U/L ALT 13 (6-50) U/L Alkaline Phosphatase 58 (38-126) U/L Total Protein 8.0 (6.3-8.2) g/dL Albumin 4.4 (3.5-5.1) g/dL Lipase 42 (23-300) U/L Urine Color Dark yellow (Yellow) Urine Appearance Clear (Clear) Urine pH 5.0 (5.0-9.0) Ur Specific [place] 1.024 (1.001-1.035) Urine Protein 1+ H (Negative) mg/dL Urine Glucose (UA) Negative (Negative) mg/dL Urine Ketones 1+ H (Negative) mg/dL Ur Blood (Man) Negative (Negative) Urine Nitrate Negative (Negative) Urine Bilirubin Negative (Negative) Urine Urobilinogen 1.0 (<2.0) mg/dL Leukocyte Esterase Rfl Negative (Negative) JP/UL Urine RBC 0-2 (0-2) /hpf Urine WBC 0-5 (0-3) /hpf Ur Squamous Epith Cells None seen (Few) /hpf Urine Bacteria None seen /hpf Urine Casts 0-2 <Agnieszka Trujillo PA-C - Last Filed: 11/26/24 15:20> Lab Results 11/26/24 Range/Units 17:18 WBC 5.4 (4.5-10.0) K/mm3 RBC 4.76 (4.6-6.20) M/mm3 Hgb 13.5 L (14.0-18.0) g/dL Hct 40.1 L (42.0-52.0) % MCV 84.2 (80-100) fl MCH 28.4 (26-34) pg MCHC 33.7 (32-36) g/dl RDW 13.2 (11.5-14.5) % Plt Count 174 (150-375) k/mm3 MPV 10.0 (7.4-10.4) fl Immature Gran % (Auto) 0.2 (0-0.5) % Neut % (Auto) 66.6 (45.5-73.1) % Lymph % (Auto) 24.2 (18.3-44.2) % [place] % (Auto) 7.7 (2.6-8.5) % Eos % (Auto) 0.6 (0-4.4) % Baso % (Auto) 0.7 (0.2-1.2) % Lymph # (Auto) 1.31 (0.9-3.2) K/mm3 [place] # (Auto) 0.4 (0.1-0.6) K/mm3 Eos # (Auto) 0.0 (0-0.3) K/mm3 Baso # (Auto) 0.0 (0.0-0.1) K/mm3 Abs Immat Gran (auto) 0.01 (0.00-0.031) K/mm3 Absolute Neuts (auto) 3.6 (1.3-6.7) K/mm3 Absolute Nucleated RBC 0.000 (0.0-0.012) K/mm3 Nucleated RBC % 0.0 (0.0-0.2) % Sodium 139 (137-145) mmol/L Potassium 3.9 (3.4-5.0) mmol/L Chloride 108 H (98-107) mmol/L Carbon Dioxide 25 (22-30) mmol/L Anion Gap 6 (4-12) mmol/L BUN 18 (9-20) mg/dL Creatinine 1.00 (0.7-1.3) mg/dL Estim Creat Clear Calc 69 ml/min Estimated GFR > 60 (59 - ) Glucose 109 (65-110) mg/dL Calcium 8.7 (8.4-10.2) mg/dL Total Bilirubin 1.4 H (0.2-1.3) mg/dL AST 19 (17-59) U/L ALT 13 (6-50) U/L Alkaline Phosphatase 58 (38-126) U/L Total Protein 8.0 (6.3-8.2) g/dL Albumin 4.4 (3.5-5.1) g/dL Lipase 42 (23-300) U/L Urine Color Dark yellow (Yellow) Urine Appearance Clear (Clear) Urine pH 5.0 (5.0-9.0) Ur Specific [place] 1.024 (1.001-1.035) Urine Protein 1+ H (Negative) mg/dL Urine Glucose (UA) Negative (Negative) mg/dL Urine Ketones 1+ H (Negative) mg/dL Ur Blood (Man) Negative (Negative) Urine Nitrate Negative (Negative) Urine Bilirubin Negative (Negative) Urine Urobilinogen 1.0 (<2.0) mg/dL Leukocyte Esterase Rfl Negative (Negative) JP/UL Urine RBC 0-2 (0-2) /hpf Urine WBC 0-5 (0-3) /hpf Ur Squamous Epith Cells None seen (Few) /hpf Urine Bacteria None seen /hpf Urine Casts 0-2 <Darin Castillo MD - Last Filed: 11/26/24 20:27> Imaging Data Radiologist's impression: ITS Impressions Abdomen/Pelvis CT 11/26/24 18:13 IMPRESSION: 1. Highly suggestive diverticulitis in the sigmoid:. 2. Stone in the right ureterovesical junction. 3. Multiple stones in the right kidney. 4. Diverticula of the urinary bladder. 5. Anterior abdominal wall hernia with fat and fluid content. Bilateral inguinal fat containing hernias. 6. Panniculitis in the upper abdomen. 7. Small sliding hiatus hernia. <Agnieszka Trujillo PA-C - Last Filed: 11/26/24 15:20> ITS Impressions Abdomen/Pelvis CT 11/26/24 18:13 IMPRESSION: 1. Highly suggestive diverticulitis in the sigmoid:. 2. Stone in the right ureterovesical junction. 3. Multiple stones in the right kidney. 4. Diverticula of the urinary bladder. 5. Anterior abdominal wall hernia with fat and fluid content. Bilateral inguinal fat containing hernias. 6. Panniculitis in the upper abdomen. 7. Small sliding hiatus hernia. <Darin Castillo MD - Last Filed: 11/26/24 20:27> Discharge Plan Discharge Clinical Impression: Ureterolithiasis, Diverticulitis Hernia, umbilical Qualifiers: Obstruction and gangrene presence: without obstruction or gangrene Qualified Code(s): K42.9 - Umbilical hernia without obstruction or gangrene <Agnieszka Trujillo PA-C - Last Filed: 11/26/24 15:20> Patient Disposition: Home, Self-Care <Agnieszka Trujillo PA-C - Last Filed: 11/26/24 15:20> Condition: Stable <TED Gray Last Filed: 11/26/24 15:20> Instructions: Antibiotic Form, Diverticulitis (ED), Umbilical Hernia (ED), Abdominal Pain (ED), Ureteral Stones (ED) <Agnieszka Trujillo PA-C - Last Filed: 11/26/24 15:20> Additional Instructions: Please follow-up with your urologist. Please follow-up with your surgeon. If your symptoms worsen please return to the emergency department <Agnieszka Trujillo PA-C - Last Filed: 11/26/24 15:20> Patient Language: Greenlandic <Agnieszka Trujillo PA-C - Last Filed: 11/26/24 15:20> Prescriptions: No Action omeprazole 20 mg capsule,delayed release(DR/EC) 20 mg PO DAILY rosuvastatin 20 mg tablet 20 mg PO DAILY carvedilol 3.125 mg tablet 3.125 mg PO Q12H Rx Instructions: must administer with a meal/food trimethoprim 100 mg tablet 100 mg PO DAILY levofloxacin 750 mg tablet 750 mg PO DAILY Qty: 7 0RF tamsulosin 0.4 mg capsule 0.4 mg PO HS Qty: 30 0RF Rx Instructions: TAKE ONE CAPSULE BY MOUTH ONCE DAILY 30 MINUTES FOLLOWING THE SAME MEAL EACH DAY <Agnieszka Trujillo PA-C - Last Filed: 11/26/24 15:20> Follow-up/Referrals: Bruce,DO Nakul [Primary Care Provider] - <Agnieszka Trujillo PA-C - Last Filed: 11/26/24 15:20> Time of Disposition: 20:26 <Agnieszka Trujillo PA-C - Last Filed: 11/26/24 15:20> 20:26 <Darin Castillo MD - Last Filed: 11/26/24 20:27>
[2024-11-26 17:35] LABS: Add Urine Microscopic? YES; Appearance Urine Clear (Clear); Bacteria Urine None Seen /hpf; Bilirubin Urine Negative (Negative); Blood Urine Negative (Negative); Color Urine Dark Yellow (Yellow); Glucose Urine UA Negative (Negative); Ketones Urine 1+ mg/dL (Negative); Leukocyte Esterase Ur Negative LEU/UL (Negative); Nitrate Urine Negative (Negative); Non Pathogenic Casts 0-2; Protein Urine 1+ mg/dL (Negative); RBC Urine 0-2 /hpf (0-2); Specific Grav Ur 1.024 (1.001-1.035); Squamous Epithelial Cell Urine None Seen /hpf (Few); WBC Urine 0-5 /hpf (0-3)
[2024-11-26 17:36] LABS: Basophils Percent Auto 0.7 % (0.2-1.2); Eosinophils Percent Auto 0.6 % (0-4.4); Hematocrit 40.1 % (42.0-52.0); Hemoglobin 13.5 g/dL (14.0-18.0); Immature Granulocyte Absolute 0.01 K/mm3 (0.00-0.031); Immature Granulocyte Percent A 0.2 % (0-0.5); Lymphocytes Absolute Auto 1.31 K/mm3 (0.9-3.2); Lymphocytes Percent Auto 24.2 % (18.3-44.2); Mean Corpuscular HGB Conc 33.7 g/dl (32-36); Mean Corpuscular Hemoglobin 28.4 pg (26-34); Mean Corpuscular Volume 84.2 fl (80-100); Monocytes Absolute Auto 0.4 K/mm3 (0.1-0.6); Monocytes Percent Auto 7.7 % (2.6-8.5); Neutrophils Absolute Auto 3.6 K/mm3 (1.3-6.7); Neutrophils Percent Auto 66.6 % (45.5-73.1); Platelet Count Result 174 k/mm3 (150-375); Red Blood Count 4.76 M/mm3 (4.6-6.20); Red Cell Distribution Width 13.2 % (11.5-14.5); White Blood Count 5.4 K/mm3 (4.5-10.0)
[2024-11-26 17:38] LABS: Alanine Aminotransferase 13 U/L (6-50); Albumin Level 4.4 g/dL (3.5-5.1); Alkaline Phosphatase 58 U/L (38-126); Anion Gap 6 mmol/L (4-12); Aspartate Amino Transferase 19 U/L (17-59); Bilirubin,Total 1.4 mg/dL (0.2-1.3); Blood Urea Nitrogen 18 mg/dL (9-20); Calcium 8.7 mg/dL (8.4-10.2); Carbon Dioxide 25 mmol/L (22-30); Chloride 108 mmol/L (98-107); Estimated CRCL calculation 69 ml/min; Estimated Glomerular Filt Rate > 60; Glucose 109 mg/dL (65-110); Lipase 42 U/L (23-300); Potassium 3.9 mmol/L (3.4-5.0); Sodium 139 mmol/L (137-145)
[2024-11-26 19:22] VITALS: BP 159/84; PULSE 73; RESP 15; TEMP 36.5; O2SAT 98
--- NOTE | 2024-11-26 19:24 | PC.NURSE ---
Pt. called for VS with no reply in [facility]. Others in [facility] state they think pt. is in the bathroom.
[2024-11-26] MEDS: metroNIDAZOLE 500 MG TABLET PO (20:32)
[2024-11-26] MEDS: levoFLOXacin 750 MG TABLET PO (20:32)
== END 2024-11-26 20:38 | disposition home or self-care (01) ==
PROVIDERS: Physician Assistant; Emergency Provider Emergency Medicine; PCP Student in an Organized Health Care Education/Training Program
DX: N20.1 Calculus of ureter (principal); K57.32 Diverticulitis of large intestine without perforation or abscess without bleeding; K42.9 Umbilical hernia without obstruction or gangrene; Z87.442 Personal history of urinary calculi
CPT/HCPCS: 36415; 74177; 80053; 81001; 83690; 85025; 99284; A9270; Q9967

== ENCOUNTER 2025-09-22 01:59 | Day surgery (SDC) | payer OTHER, SELFPAY ==
--- OUTSIDE RECORDS SUMMARY | 2007-07-17 10:19 | XMS_ITS | Continuity of Care Document ---
Author Organization [facility] Address [address] [place] [address] [address] [place] [address] Phone Care Team Providers Care Court Worker Name Role Phone Raymond Huerta Unavailable Unavailable Procedures Procedure Date Eye Exam & Treatment Advance Directives Directive Yes / No Effective Date File Name No Information Encounters Encounter Description Practice Location Reason(s) For Visit Diagnoses Date Provider Providers Copied on Encounter [facility], [address], [place], [place], [id number], [place] tel:[phone] [facility] (formerly [facility]) No Information [address]. [address] , [address], [place], [address], [place]. tel:[phone] Family History Family Member Type Diagnosis Age At Onset No Information Payers Payer name Insurance type Covered democrat ID Authoriza tion(s) [employer] Plan [id number] Social History Type Description Quantity Date Captured Comments Sex Male Smoking Status No Information Chief Complaint And Reason For Visit No Information Reason For Referral Reason For Referral No Information History Of Present Illness Encounter Date Complaint History Of Prese nt Illness No Information Functional Status Date Functional Assessmen t No Information Instructions Date Instruction Additional Infor mation No Information Assessments Type Assessment Date No Information Patient Care Teams Name Effective Dates (start - stop) Status Members No Information
[2025-09-14 11:09] VITALS: BMI 33.3
--- OUTSIDE RECORDS SUMMARY | 2025-09-22 02:02 | XMS_ITS | Clinical Summary ---
Author Organization [facility] Address [address] [place] [id number] Care Team Providers Care Compilation Clerk Name Role Phone Nakul Barrera Primary Care Provide r Allergies Active Allergy Reactions Criticality Noted Date Comments Penicillins Hives,Rash Medium 06/14/2021 Reaction: HIVES Medications omeprazole (PriLOSEC) 20 mg capsule TAKE 1 CAPSULE BY MOUTH EVERY DAY IN THE EVENING BEFORE A MEAL 0 Active tamsulosin (FLOMAX) 0.4 mg extended release capsule Take 1 capsule (0.4 mg total) by mouth daily 1 Active cholecalciferol 25 mcg (1,000 unit) tablet Take 2 tablets (2,000 Units total) by mouth daily Active rosuvastatin (CRESTOR) 20 mg tablet Take 1 tablet (20 mg total) by mouth daily 90 tablet 1 4 09/30/20 25 Active nystatin powder Apply topically 3 (three) times a day 4 Active triamcinolone (KENALOG) 0.1 % cream Apply topically 2 (two) times a day 4 Active losartan (COZAAR) 25 mg tablet Take 1 tablet (25 mg total) by mouth daily 30 tablet 4 5 08/16/20 26 Active Active Problems Problem Noted Date Diagnosed Date Hyperglycemia 09/02/2024 Hyperparathyroidism 03/10/2024 Assessment & Plan (09/02/2024 5:43 PM CDT): Chronic, stable, asymptomatic Update serum calcium, PTH and 25 hydroxy vitamin-D level Assessment & Plan (03/10/2024 12:59 PM CDT): Differential would be primary versus secondary to vitamin-D deficiency Unlikely to have primary hyperparathyroidism with a normal calcium but given the history of nephrolithiasis will order workup 24 hour urine calcium CMP and PTH 25 hydroxy vitamin-D DEXA requested Recommendations to follow Vitamin D deficiency 03/10/2024 Assessment & Plan (09/02/2024 5:43 PM CDT): Update 25 hydroxy vitamin-D levels and continue vitamin-D accordingly Assessment & Plan (03/10/2024 1:00 PM CDT): update 25 hydroxy vitamin-D levels Osteopenia of multiple sites 03/10/2024 Surgical History Surgery Date Site/Laterality Comments HERNIA REPAIR Medical History Medical History Date Comments GERD (gastroesophageal reflux disease) Enlarged prostate Family History Medical History Relation Name Comments Diabetes Other Relation Name Status Comments Other Social History Tobacco Use Types Packs/Day Years Used Date Smoking Tobacco: Former Cigarettes Cigars Tobacco Cessation:Counseling Given: Not Answered PHQ-2 Answer Date Recorded PHQ-2 Total Score (If total score is 3 or more points, staff should administer the PHQ-9) 0 09/02/2024 Sex and Gender Information Value Date Recorded Sex Assigned at Not on file 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 Gender Identity Not on file Sexual Orientation Straight 09/02/2024 1: 30 PM CDT Obstetrics History Last Filed Vital Signs Vital Sign Reading Time Taken Comments Blood Pressure 136/74 04/06/2025 1:23 PM CDT Pulse 66 04/06/2025 1:23 PM CDT Temperature - - Respiratory Rate 17 03/07/2025 2:03 PM CDT Oxygen Saturation 98% 04/06/2025 1:23 PM CDT Inhaled Oxygen Concentration - - Weight 111.6 kg (246 lb) 04/06/2025 1:23 PM CDT Height 182.9 cm (6') 04/06/2025 1:23 PM CDT Body Mass Index 33.36 04/06/2025 1:23 PM CDT Plan of Treatment Health Maintenance Due Date Last Done Comments DTaP/Tdap/Td Vaccine (1 - Tdap) 1956 Hepatitis B Screening 1963 Well Visit 65+ 2010 Covid-19 Vaccine (4 - 2024-2 6 season) 2025 09/11/2021, 02/20/2021, 01/22/2021 Influenza Vaccine (#1) 2025 , 09/04/2021, 08/17/2020, Additional history exists Depression Screening 09/02/2025 09/02/2024 Fall Risk Assessment 09/02/2025 09/02/2024 Zoster Vaccine Completed 12/30/2018, 10/13/2018 Pneumococcal vaccine 65+ Completed 08/30/2022, 08/24 Insurance [facility] Care Teams Compilation Clerk Relationship Specialty Start Date End Date Nakul Barrera DO [address] [place] [id number] PCP - General Family Medicine 05/15/22
--- OUTSIDE RECORDS SUMMARY | 2025-09-22 02:02 | XMS_ITS | Encounter Summary ---
Author Organization [facility] Address [address] [place] [id number] Care Team Providers Care Metal Sander Name Role Phone Nakul Barrera Primary Care Provider + Encounter Details Date Type Department Care Team ([facility] Contact Info) Description 02/20/2023 Fieldoo Message Enc [facility] Family & Internal [address] [phone] [employer] Data, [facility] Provider referral Social History Tobacco Use Types Packs/Day Years Used Date Smoking Tobacco: Former Cigars Smokeless Tobacco: Never Comments:pt. smoked cigars a bout 35 years ago Alcohol Use Standard Drinks/Week Comments Yes 0 (1 standard drink = 0.6 oz pur e alcohol) occ PHQ-2 Answer Date Recorded Patient Health Questionnaire-2 Score 0 02/17/2023 Sex and Gender Information Value Date Recorded Sex Assigned at Male 12/09/2024 11:50 AM PRODUCTION INTERN Legal Sex Male 6:25 PM CDT Gender Identity Male 12/09/2024 11:50 AM PRODUCTION INTERN Sexual Orientation Not on file COVID-19 Exposure Response Date Recorded In the last 10 days, have yo u been in contact with someone who was confirmed or suspected to have Coronavirus/COVID-19? No / Unsure 02/21/2023 10:28 AM CDT documented as of this encounter Plan of Treatment Upcoming Encounters Date Type Department Care Team ([facility] Contact Info) Description 01/05/2026 9:40 AM PRODUCTION INTERN Office Visit [facility] Family & Internal Medicine - [place] [id number] [place] [phone] Nakul Barrera DO [address] [place] [phone] documented as of this encounter Visit Diagnoses Not on filedocumented in this encounter Additional Health Concerns Assessment Noted Time PHQ-9 Depression Total Score: 0 02/18/20 23 10:00 AM CDT documented as of this encounter Care Teams Metal Sander Relationship Specialty Start Date End Date Nakul Barrera DO [address] [place] [id number] PCP - General FAMILY PRACTICE 07/10/21 documented as of this encounter
--- OUTSIDE RECORDS SUMMARY | 2025-09-22 02:02 | XMS_ITS | Clinical Summary ---
Author Organization [facility] Address [address] [place] [id number] Care Team Providers Care Strapper Name Role Phone Nakul Barrera Primary Care Provider + Allergies Active Allergy Reactions Criticality Noted Date Comments Penicillins Hives,Rash,Unknown Medium 06/14/2021 Reaction: HIVES Medications vitamin D3, cholecalcifero l, 1000 UNIT Tab tablet Take 2 tablets (2,000 Units total) by mouth daily. Active nitroglycerin (NITROSTAT) 0.[address] 1 tablet (0.4 mg total) under the tongue every 5 (five) minutes as needed for Chest Pain. Maximum of 3 doses. After 3rd dose, call 9--1 25 tablet 2 12/16/19 Active Additional Information Patient not taking.Reported on 09/01/2025 indomethacin (INDOCIN SR) 75 MG capsuleIndicat ions:Chronic gout without tophus, unspecified cause, unspecified site Take 1 capsule by mouth twice daily upon onset of gout; can continue for up to 5 days as needed 30 capsule 1 09/05/20 23 Active nystatin (MYCOSTATIN) powderIndicati ons:Itching Apply topically 3 (three) times daily. 60 g 2 04/07/20 24 Active triamcinolone (KENALOG) 0.1 % creamIndicatio ns:Rash APPLY TOPICALLY TWICE A DAY 80 g 06/07/20 24 Active losartan (COZAAR) 25 MG tablet Take 1 tablet (25 mg total) by mouth daily. Active tamsulosin (FLOMAX) 0.4 MG CapIndications :Benign prostatic hyperplasia with nocturia TAKE TWO CAPSULES BY MOUTH ONCE DAILY 30 MINUTES FOLLOWING THE SAME MEAL EACH DAY 180 capsule 1 08/31/20 24 Active Additional Information Patient taking differently: Oral Daily, TAKE one CAPSULES BY MOUTH ONCE DAILY 30 MINUTES FOLLOWING THE SAME MEAL EACH DAY, Reported on 09/01/2025 rosuvastatin (CRESTOR) 20 MG tabletIndicati ons:Atheroscle rosis of aorta Take 1 tablet (20 mg total) by mouth nightly at bedtime. 90 tablet 3 10/08/20 24 Active omeprazole (PRILOSEC) 40 MG capsuleIndicat ions:Gastroeso phageal reflux disease, unspecified whether esophagitis present Take 1 capsule (40 mg total) by mouth daily as needed. 90 capsule 1 09/01/20 25 Active magnesium oxide (MAG-OX) 400 MG tabletIndicati ons:Low blood magnesium,Func tion kidney decreased TAKE 1 TABLET BY MOUTH EVERY DAY 30 tablet 2 09/06/20 25 Active omeprazole (PRILOSEC) 40 MG capsuleIndicat ions:Gastroeso phageal reflux disease, unspecified whether esophagitis present Take 1 capsule (40 mg total) by mouth daily. 30 capsule 1 02/19/20 25 025 Discontinued(D ose adjustment) omeprazole (PRILOSEC) 40 MG capsuleIndicat ions:Gastroeso phageal reflux disease, unspecified whether esophagitis present Take 1 capsule (40 mg total) by mouth daily. 30 capsule 1 03/18/20 25 025 Discontinued magnesium oxide (MAG-OX) 400 MG tabletIndicati ons:Low blood magnesium,Func tion kidney decreased Take 1 tablet (400 mg total) by mouth daily. 30 tablet 2 06/10/20 25 025 Discontinued Active Problems Problem Noted Date Diagnosed Date Diverticulitis 01/20/2025 Hearing loss, bilateral 01/20/2025 Impacted cerumen, right ear 01/20/2025 Umbilical hernia 01/20/2025 Ureterolithiasis 01/20/2025 Hyperparathyroidism, unspecified 04/07/2024 Osteopenia of multiple sites 03/10/2024 Vitamin D deficiency 03/10/2024 Overview (04/07/2024): Last Assessment & Plan: update 25 hydroxy vitamin-D levels Pulmonary hypertension 03/07/2023 Atherosclerosis of aorta 11/06/2022 Kidney stone on left side 07/10/2021 Hyperglycemia 07/10/2021 GERD (gastroesophageal reflux disease) BPH (benign prostatic hyperplasia) 07/10/2021 Resolved Problems Problem Noted Date Diagnosed Date Resolved Date Complication, blocked Hackett catheter 11/05/2021 05/06/2022 Calculus of urinary bladder 07/10/2021 05/06/2022 Encounters Date Type Department Care Team Description 09/01/2025 10:20 AM CDT Office Visit [facility] Internal [address] [phone] Nakul Barrera, Hypertension Follow Up (Routine follow up. ) 09/01/2025 Travel 07/14/2025 Results Follow-Up [facility] [address] [phone] Nakul Barrera, MAGNESIUM, BASIC METABOLIC PANEL 07/11/2025 9:40 AM CDT Laboratory Only [address] [phone] Nakul Barrera, DO 07/11/2025 Travel from Last 3 Months Immunizations Immunization Administration Dates Next Due Fluarix 12/06/2013 Fluzone High Dose (IIV, triv alent, 0.5mL) 09/01/2025,08/30/2024,08/17/2020,2016,10/10/2015 Fluzone High Dose - >Age 65 (Prefilled Syringe) 09/09/2023,09/05/2023,08/30/2022,2020,08/17/2020,11/11/2017,10/10/2015 Influenza (Generic) 12/06/2013 Influenza Adult (Generic) 08/17/2020,11/11/2017, 10/10/2015 PFIZER COVID-19 (ORIGINAL FORMULATION, PURPLE CAP) mRNA, LNP-S, PF, 30 MCG/0.3 ML DOSE 09/11/2021,02/20/2021,01/22/2021 Pneumococcal (Pneumovax 23) 08/30/2022 Pneumococcal (Prevnar 13) 09/10/2021 Pneumococcal (Prevnar 20) 11/26/2021 Shingrix 12/30/2018,10/13/2018 Family History Medical History Relation Comments Diabetes Brother Diabetes Father Pacermaker Father Stroke Paternal Grandmother Relation Status Comments Brother Alive Father (Age 83) Maternal Grandfather Maternal Grandmother Mother (Age 96) Paternal Grandfather Paternal Grandmother Sister Alive Social History Tobacco Use Types Packs/Day Years Used Date Smoking Tobacco: Former Cigars Passive Smoke Exposure: Past Smokeless Tobacco: Never Tobacco Cessation:Counseling Given: Yes Comments:pt. smoked cigars about 35 years ago Alcohol Use Standard Drinks/Week Comments Yes 0 (1 standard drink = 0.6 oz pur e alcohol) occ PHQ-2 Answer Date Recorded Patient Health Questionnaire-2 Score 0 02/11/2025 Sex and Gender Information Value Date Recorded Sex Assigned at Male 12/09/2024 11:50 AM [employer] Legal Sex Male 6:25 PM CDT Gender Identity Male 12/09/2024 11:50 AM [employer] Sexual Orientation Not on file Last Filed Vital Signs Vital Sign Reading Time Taken Comments Blood Pressure 110/68 09/01/2025 10:38 AM CDT Pulse 63 09/01/2025 10:38 AM CDT Temperature 36.7 C (98.1 F) 09/01/2025 10:38 AM CDT Respiratory Rate 16 09/01/2025 10:3 8 AM CDT Oxygen Saturation 98% 09/01/2025 10: 38 AM CDT Inhaled Oxygen Concentration - - Weight 108.7 kg (239 lb 11.2 oz) 2024 10:38 AM CDT Height 182.9 cm (6') 09/01/2025 10:38 AM CDT Body Mass Index 32.51 09/01/2025 10:38 AM CDT Plan of Treatment Upcoming Encounters Date Type Department Care Team (Late st Contact Info) Description 01/05/2026 9:40 AM [employer] Office Visit [facility] Family & Internal Medicine [address] [phone] Nakul Barrera DO [address] [place] [phone] Health Maintenance Due Date Last Done Comments Annual Medicare Wellness Visit 2010 DTaP, Tdap and Td Vaccines (1 - Tdap) 10/21/2025 Postponed from 1964 (No Insurance Coverage) RSV Immunization or 60+ Years (1 - 1-dose 75+ series) 05/23/2026 Postponed from 2020 (Going to Outside Clinic) COVID-19 Vaccine ( season) 2026 09/11/2021, 02/20/2021, 01/22/2021 Postponed from 07/25/2025 (Patient Refused) Zoster Vaccines Completed 12/30/2018, 10/13/2018 Pneumococcal Vaccine: 50+ Years Completed 08/30/2022, 11/26/2021, 09/10/2021 PHQ-2 (Phys[facility] [place]) Completed 02/11/2025 Influenza Adult Completed 09/01/2025, 05/2024, 09/09/2023, Additional history exists Hepatitis A Vaccines Aged Out No long er eligible based on patient's age to complete this topic Meningococcal B Vaccine Aged Out No l onger eligible based on patient's age to complete this topic Meningococcal Vaccine Aged Out No kira remy eligible based on patient's age to complete this topic RSV Immunizations Under 20 Months Aged Out No longer eligible based on patient's age to complete this topic Procedures Procedure Name Priority Date/Time Associated Diagnosis Comments COLLECTION VENOUS BLOOD VENIPUNCTURE Routine 07/11/2025 9:46 AM CDT Low blood magnesium Function kidney decreased BASIC METABOLIC PANEL Routine 07/11/2025 9:46 AM CDT Function kidney decreased MAGNESIUM Routine 07/11/2025 9:46 AM CDT Low blood magnesium from Last 3 Months Results * (ABNORMAL) BASIC METABOLIC PANEL (07/11/2025 9:46 AM CDT) [facility] SODIUM S/P/B 143 136 - 145 MMOL/L 07/11/2025 4:17 PM T [facility] POTASSIUM S/P/B 4.7 3.5 - 5.1 MMOL/L 07/11/2025 4:17 PM T [facility] CHLORIDE S/P/B 106 98 - 107 MMOL/L 07/11/2025 4:17 PM T [facility] CO2 27.7 21 - 32 MMOL/L 07/11/2025 4:17 PM T [facility] GLUCOSE 106(H) 70 - 99 MG/DL 07/11/2025 4:17 PM [facility] BUN 18 7 - 18 MG/DL 07/11/2025 4:17 PM [facility] CREATININE S/P/B 1.18 0.70 - 1.30 MG/DL 07/11/2025 4:17 PM [facility] CALCIUM S/P/B 9.2 8.4 - 10.5 MG/DL 07/11/2025 4:17 PM [facility] ANION GAP 9.3 5 - 15 MMOL/L 07/11/2025 4:17 PM [facility] Comment:REFERENCE RANGE NOT ESTABLISHED OSMOLALITY (CALC) 298 MOSM/KG 025 4:17 PM T [facility] Comment:REFERENCE RANGE NOT ESTABLISHED GFR ESTIMATE 63(L) >90 ML/MIN/1. 73 M2 07/11/2025 4:17 PM T [facility] GFR NOTES GFR REFERENCE S: 07/11/2025 4:17 PM [facility] Comment: THE ESTIMATED GFR IS CALCULATED USING THE 2020 CKD-EPI EQUATION. THE FOLLOWING CATEGORIES FOR GRADING RENAL FUNCTION ARE RECOMMENDED BY THE INTERNATIONAL SOCIETY OF NEPHROLOGY (KDIGO 2012 CLINICAL PRACTICE GUIDELINE). G1,NORMAL OR HIGH: >89 ml/min/1.73 m2 G2,MILDLY DECREASED: 60-89 ml/min/1.73 m2 G3A,MILDLY TO MODERATELY DECREASED: 45-59 ml/min/1.73 m2 G3B,MODERATELY TO SEVERELY DECREASED: 30-44 ml/min/1.73 m2 G4,SEVERELY DECREASED: 15-29 ml/min/1.73 m2 G5,KIDNEY FAILURE: <15 ml/min/1.73 m2 07/11/2025 9:46 AM CDT Nakul Barrera DO LABORATORY Final Re sult Performing Organization Address [facility] Co de Phone Number [facility] [address] [place] [address], [place] [phone] * (ABNORMAL) MAGNESIUM (07/11/2025 9:46 AM CDT) MAGNESIUM 1.7(L) 1.8 - 2.4 MG/DL 07/11/2025 4:17 PM CDT [facility] 07/11/2025 9:46 AM CDT Nakul Barrera DO LABORATORY Final Re sult Performing Organization Address [facility] Co de Phone Number [facility] [address] [place] [address], [place] [phone] from Last [address] [address] [employer] Care Teams Strapper Relationship Specialty Start Date End Date Nakul Barrera DO [address] [place] [address] [phone] PCP - General FAMILY PRACTICE 07/10/21
[2025-09-22 10:35] VITALS: BP 123/96; PULSE 75; RESP 18; TEMP 36.1; O2SAT 97; BMI 31.5
[2025-09-22] MEDS: LACTATED RINGERS 1,000 ML 150 ML IV CONT (10:49)
--- NOTE | 2025-09-22 11:27 | WPDANESEPPF ---
Anes - Initial Pre Proc Eval Procedure: Operation Date: 09/22/25 11:30 Proposed Procedures p Diagnostic Colonoscopy - Jon Villarreal MD Date/Time: 09/22/25 11:27 Surgeon: Jon Villarreal MD Pre Op Diagnosis: Diverticulitis of large intestine without perforat Patient Data Age: 80 Gender: M Height: 1.83 m Weight: 105.5 kg Last Vital Signs Temp 97 F L 09/22/25 10:35 Pulse 75 09/22/25 10:35 Resp 18 09/22/25 10:35 BP 123/96 H 09/22/25 10:35 Pulse Ox 97 09/22/25 10:35 O2 Del Method Room Air 09/22/25 10:35 Allergies Allergy/AdvReac Type Severity Reaction Status Date / Time Penicillins Allergy Unknown Rash Verified 09/22/25 10:34 Home Medications ?Medication ?Instructions ?Recorded ?Confirmed ?Type tamsulosin 0.4 mg capsule 0.4 mg PO HS #30 caps 07/25/21 09/22/25 Rx omeprazole 20 mg capsule,delayed 20 mg PO DAILY 12/24/23 09/22/25 History release losartan 25 mg tablet 25 mg PO DAILY 12/13/24 09/22/25 History rosuvastatin 20 mg tablet 20 mg PO DAILY 12/13/24 09/22/25 History potassium chloride 20 mEq 20 meq PO DAILY 09/22/25 09/22/25 History tablet,extended release (K-Tab) Patient hx anesthesia problems: none Family hx anesthesia problems: none Results Review: All pre-operative results and documents have been reviewed as part of the pre-operative evaluation. [facility] Past Medical History Medical History Bladder stone Screening for abdominal aortic aneurysm Skin lesions Vitamin D deficiency disease Screening PSA (prostate specific antigen) Surgical History Surgical History H/O umbilical hernia repair S/P tonsillectomy History of prostate surgery H/O hemorrhoidectomy Hx of cystoscopy Social History Social History Social History: Patient lives at home with his Carina that he has been to for 56 years with no pets. 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 Gender identity (if verbalized by the patient): Male Sexual Orientation (if Verbalized by the Patient): Straight or Heterosexual Spiritual care concerns: No Agree to blood products: Yes Anes - Eval Final PreProcedure Day of Procedure 09/22/25 11:27 Patient weight: normal Lungs: normal air movement Airway: Mallampati scale class II Neurological: alert and oriented Last oral intake: >/= 8 hours ASA classification: II Emergent: no Anesthetic plan: proceed Anesthesia type and monitoring: general GIVS and standard monitoring Results Review: All pre-operative results and documents have been reviewed as part of the pre-operative evaluation. HTN, Hyperlipemia, active without cp or sob. Informed Consent: The patient's anesthetic plan and its attendant risks and benefits were discussed with the patient/family/POA. Questions were solicited and answers provided to the satisfaction of the patient/family/POA.
--- NOTE | 2025-09-22 12:11 | P.HP_ITS ---
H&P: HPI History of Present Illness Date/Time: 09/22/25 12:11 Chief Complaint: History of recurrent diverticulitis Narrative: This patient had 2 episodes of acute diverticulitis at the beginning of this year, requiring antibiotics. He was never hospitalized. He is now referred for colonoscopy. His last colonoscopy was more than 30 years ago. Review of Systems Review of Systems: All systems reviewed & are unremarkable except as noted in HPI and below PMFSH Past Medical History Medical History Bladder stone Screening for abdominal aortic aneurysm Skin lesions Vitamin D deficiency disease Screening PSA (prostate specific antigen) Surgical History Surgical History H/O umbilical hernia repair S/P tonsillectomy History of prostate surgery H/O hemorrhoidectomy Hx of cystoscopy Social History Social History Social History: Patient lives at home with his Carina that he has been to for 56 years with no pets. 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 Gender identity (if verbalized by the patient): Male Sexual Orientation (if Verbalized by the Patient): Straight or Heterosexual Spiritual care concerns: No Agree to blood products: Yes Meds Home Medications and Allergies Home Medications ?Medication ?Instructions ?Recorded ?Confirmed ?Type tamsulosin 0.4 mg capsule 0.4 mg PO HS #30 caps 09/22/25 Rx omeprazole 20 mg capsule,delayed 20 mg PO DAILY 09/22/25 History release losartan 25 mg tablet 25 mg PO DAILY 12/13/2408/2625 History rosuvastatin 20 mg tablet 20 mg PO DAILY 12/13/2408/26 History potassium chloride 20 mEq 20 meq PO DAILY 09/22/25 History tablet,extended release (K-Tab) Allergies Allergy/AdvReac Type Severity Reaction Status Date / Time Penicillins Allergy Unknown Rash Verified 09/22/25 10:34 Vital Signs Vital Signs - 24 hr 09/22/25 10:35 Temperature 97 F L Pulse Rate 75 Respiratory Rate 18 Blood Pressure 123/96 H Pulse Oximetry 97 Oxygen Delivery Room Air Exam Const: General: cooperative and healthy appearing Resp: Effort & Inspection: normal respiratory effort and able to speak in complete sentences Auscultation: clear to auscultation bilaterally Cardio: Rate: regular rate Rhythm: regular rhythm GI: Inspection: normal to inspection GI Palp: No No hepatosplenomegaly present Auscultation: normal bowel sounds Rectal Exam: deferred Skin: General skin exam: normal color Psych: Appearance: grossly normal Mental Status: mental status grossly normal Assessment and Plan Assessment and plan (1) Diverticulitis of sigmoid colon: Code(s): K57.32 - Diverticulitis of large intestine without perforation or abscess without bleeding Status: Acute Assessment and Plan: The patient is deemed a good candidate for the procedure. Consent signed. Will proceed.
--- NOTE | 2025-09-22 12:33 | S_PTH ---
PATIENT: Sea Godinez LOC: [facility] U#:[id number] AGE/SX: 80/M ROOM: RE09/22/[address]: Jon Villarreal MD : 1945 BED: DIS: 09/22/2025 SPEC #: [id number] RECD: 09/22/25 13:09 STATUS: MK REQ #: [id number] JOSSELIN: 09/22/25 12:[address]: Jon Villarreal DEPT: [facility] Surgical RECD BY: Arabella Mcgee ENTERED: 09/22/25 13:10 SP TYPE: Surgical OTHR DR: Nakul Barrera, DO Tissues: A - Colon Polypectomy Procedures: Hematoxylin and Eosin Stain Gross and Microscopic Level 4
[2025-09-22 12:35] VITALS: BP 105/59; PULSE 61; RESP 20; O2SAT 98
[2025-09-22 12:45] VITALS: BP 109/70; PULSE 64; RESP 19; O2SAT 100
[2025-09-22 12:55] VITALS: BP 127/76; PULSE 55; RESP 20; O2SAT 100
== END 2025-09-22 13:12 | disposition home or self-care (01) ==
PROVIDERS: PCP Student in an Organized Health Care Education/Training Program; Referring Provider Student in an Organized Health Care Education/Training Program; Visit Provider Internal Medicine Gastroenterology
PROC: 0DJD8ZZ Inspection of Lower Intestinal Tract, Via Natural or Artificial Opening Endoscopic (ICD-10-PCS; CPT 45378; principal; 2025-09-22 11:30)
DX: K57.30 Diverticulosis of large intestine without perforation or abscess without bleeding (principal); D12.5 Benign neoplasm of sigmoid colon
CPT/HCPCS: 45385; 88305; J2003; J2704; J7120